=== PATIENT | male | born 1955 | race African-American/Black ===

== ENCOUNTER → 2016-08-21 | Outpatient (CLI) | payer BC ==
--- NOTE | 2016-08-21 10:09 | XR ---
Bilateral shoulders HISTORY: Pain in both shoulders, remote trauma right shoulder 3 views of both shoulders submitted on a total of 6 images Comparison to prior right shoulder dated 16 March 2010 Small calcifications are present near the insertion of the rotator cuff tendon on the right. Alignmen t, bone mineralization, joint spaces are maintained. There is calcification along the distribution of the rotator cuff tendon on the left. Acromioclavicular joint arthropathy changes present bilaterally . IMPRESSION: Findings suggest calcific tendinitis bilaterally. AC joint arthropathy.
== END | disposition home or self-care (01) ==
LOC: RADXRMAIN 09:10
PROVIDERS: ATTEND Psychiatry & Neurology Neurology
DX: M19.011 Primary osteoarthritis, right shoulder (principal); M19.012 Primary osteoarthritis, left shoulder

== ENCOUNTER → 2016-10-06 | Outpatient (CLI) | payer BC ==
[2016-10-06 12:24] LABS: Blood Urea Nitrogen 20 mg/dL (9-20); Non-African American GFR(MDRD) >60 (>60 ml/min/1.73 sqM)
--- NOTE | 2016-10-06 12:53 | XR ---
EXAMINATION TYPE: XR chest 2V DATE OF EXAM: 10/06/2016 12:07 PM COMPARISON: NONE TECHNIQUE: PA and lateral views submitted. HISTORY: Loss of appetite FINDINGS: The lungs are clear and there is no pneumothorax, pleural effusion, or focal pneumonia. Hypertrophi c and degenerative change of the spine noted. IMPRESSION: 1. No acute process.
--- NOTE | 2016-10-06 13:59 | CT ---
EXAMINATION TYPE: CT abdomen pelvis w con DATE OF EXAM: 10/06/2016 1:34 PM COMPARISON: NONE HISTORY: 61-year-old male weight loss and loss of appetite, change in bowel habits. TECHNIQUE: Contiguous axial scanning of the abdomen and pelvis following administration of 100 ml Omn ipaque 300 IV contrast. Delayed images through the kidneys and coronal/sagittal reconstructions perf ormed. CT DLP: 943.3 mGycm Automated exposure control for dose reduction was used. FINDINGS: Heart is normal size with trace anterior pericardial fluid. Small hiatal hernia. Emphysematous change s seen in the lower lungs. Mild dependent atelectasis without pleural effusion. Apparent enlargement of the liver may be due to a Julio's lobe. Correlation can be made with LFTs to exclude underlying hepatocellular disease. Portal venous system is patent. There is a 1 cm hypervasc ular focus in the right hepatic dome, axial image 7 which follows the blood pool on delayed kidney im ages suggesting a flash filling hemangioma. Gallbladder shows some layering calculi in the fundus, axial image 33. No abnormal gallbladder disten tion. No biliary ductal dilatation. A prominent peripancreatic lymph node near the ashwini hepatis measures 9 mm. 1 cm portacaval lymph nod e is not enlarged. Otherwise, no mesenteric or retroperitoneal lymphadenopathy. Right adrenal gland, spleen, and pancreas appear within normal limits. There is a complex cystic lesion measuring 2.2 cm in the upper pole right kidney that shows periphera l calcifications and some apparent nodular enhancement, refer to axial image 16 and coronal images 60 and 62. Subcentimeter hypodensities left kidney are too small for accurate CT characterization but probably r epresent cysts. There is a lobulated 3.3 cm cyst within the anterior mid to lower pole left kidney. 4 mm nonobstructive calculus and a minor calyceal system mid pole left kidney. No dilated small bowel, free fluid, or free air. There is an indeterminate left adrenal gland nodule measuring 1.8 cm and an additional 1.3 cm nodule just superiorly. Moderate overall stone burden with mild descending colonic diverticulosis. Bladder is partially urine distended. Prostate gland enlarged at 5.0 cm wide. Rectum appears normal. No abnormal fluid collection in the pelvis or pelvic lymphadenopathy seen. Bones: Mild degenerative changes at the hips no osseous destructive process. IMPRESSION: 1. Suspicious 2.2 cm complex cystic mass upper pole right kidney. Cystic RCC is not excluded. 2. Indeterminate nodularity measuring up to 1.8 cm in the left adrenal gland. Consider adrenal protoc ol CT to assess for potential adrenal adenomas versus more suspicious lesions. 3. A mildly enlarged peripancreatic lymph node near the ashwini hepatis measures 9 mm and may be reacti ve/post inflammatory but should be followed. 4. Cholelithiasis, nonobstructive 4 mm left renal calculus, prostatomegaly (5 cm wide), and moderate stool burden. 5. Small hiatal hernia and emphysema.
== END ==
LOC: RADCTMAIN 11:33
PROVIDERS: ATTEND Family Medicine
DX: K80.20 Calculus of gallbladder without cholecystitis without obstruction (principal); E27.8 Other specified disorders of adrenal gland; N20.0 Calculus of kidney; E29.1 Testicular hypofunction; K59.00 Constipation, unspecified; K44.9 Diaphragmatic hernia without obstruction or gangrene; F17.210 Nicotine dependence, cigarettes, uncomplicated
CPT/HCPCS: 82565; 84520; 71020; 74177; 36415; Q9967

== ENCOUNTER 2016-11-03 11:25 | Day surgery (SDC) | payer BC ==
[2016-10-29 12:01] VITALS: BMI 27.8
[~2016-11-03 11:25] MED LIST: LACTATED RINGERS 1,000 ML IV SCH
[2016-11-03 12:17] VITALS: RESP 16; TEMP 97.6
[2016-11-03] MEDS ORDERED: LIDOCAINE 1% 20 ML VIAL (10MG/ML) FOR IV START INTRADERMA ONE (12:39)
[2016-11-03 12:47] LABS: Glucose,Whole Blood 156 mg/dL (75-99)
[2016-11-03] MEDS ORDERED: LIDOCAINE 1% INJ 10MG/ML (20 ML MDV) ONE (12:48)
[2016-11-03] MEDS ORDERED: PROPOFOL 10 MG/ML 20 ML VIAL IV ONE (12:48)
[2016-11-03 14:01] LABS: Glucose,Whole Blood 128 mg/dL (75-99)
[2016-11-03 14:29] VITALS: BP 101/78; PULSE 88
--- NOTE | 2016-12-01 13:35 | P.OP ---
Date of Procedure: 11/03/16 Preoperative Diagnosis: Abdominal pain and weight loss Screening for colon cancer GERD Postoperative Diagnosis: GERD with esophagitis , severe gastritis, duodenitis and hiatal hernia Diverticulosis Procedure(s) Performed: EGD with biopsy COlonoscopy Anesthesia: YOHANA Surgeon: William Waite Pathology: other Condition: stable Disposition: PACU Description of Procedure: A timeout was performed to verify the correct patient and correct procedure. Patient was on continuous vitals and pulse ox monitoring throughout the procedure. He was placed in lateral decubitus position and a bite block was inserted. A well-lubricated endoscope was passed orally. The esophagus was intubated without difficulty. The EGD was passed beyond the pylorus into the first and second portion of the duodenum. Biopsies were taken using cold biopsy forceps. The scope was retroflexed. Small hiatal was noted which is Hill Maxwell II. The GE junction is measured at [38] cm from the incisors . No evidence of reflux esophagitis. The endoscope was gradually withdrawn. Swever gastirits and duodenitis with hiatal hernia and reflux was noted. Patients position was changed for a colonoscopy Perianal examination did not reveal any external hemorrhoids. Digital rectal examination was performed. A well-lubricated endoscope was passed per rectally and was gradually advanced beyond the sigmoid colon, splenic flexure, transverse colon, hepatic flexure and cecum. The ileocecal valve was visualized. Then diverticulosis noted without any evidence of diverticulitis. Scope was gradually withdrawn inspecting all the mucosal surfaces. Bowel prep was good. No other polyps or masses noted. Retroflexed in the rectum and large internal hemorrhoid was noted which was not bleeding at this time. The scope was gradually withdrawn. Patient tolerated the procedure well and was taken to post anesthesia care unit in stable condition.f/u in 10 years for colonoscopy.
== END 2016-11-03 14:45 | disposition home or self-care (01) ==
LOC: ORWHC2ENDO 11:25
PROVIDERS: ATTEND Surgery
DX: Z12.11 Encounter for screening for malignant neoplasm of colon (principal); K29.80 Duodenitis without bleeding; K29.50 Unspecified chronic gastritis without bleeding; K21.0 Gastro-esophageal reflux disease with esophagitis; K20.0 Eosinophilic esophagitis; K44.9 Diaphragmatic hernia without obstruction or gangrene; K57.30 Diverticulosis of large intestine without perforation or abscess without bleeding; K64.8 Other hemorrhoids; I10 Essential (primary) hypertension; E78.5 Hyperlipidemia, unspecified; E11.9 Type 2 diabetes mellitus without complications; Z79.84 Long term (current) use of oral hypoglycemic drugs; Z79.1 Long term (current) use of non-steroidal anti-inflammatories (NSAID); Z79.899 Other long term (current) drug therapy
CPT/HCPCS: 88305; 88342; 88341; 43239; J2001; J2704; G0121

== ENCOUNTER → 2016-11-18 | Outpatient (CLI) | payer BC ==
[2016-11-18 08:42] LABS: EKG EKG PERFORMED
--- NOTE | 2016-11-18 09:21 | XR ---
EXAMINATION TYPE: XR chest 2V DATE OF EXAM: 11/18/2016 9:17 AM COMPARISON: 10/06/2016 TECHNIQUE: PA and lateral views submitted. HISTORY: Presurgical FINDINGS: The lungs are clear and there is no pneumothorax, pleural effusion, or focal pneumonia. Hypertrophi c change of the spine. No overt failure. IMPRESSION: 1. No acute process.
[2016-11-18 09:23] LABS: Basophils # (A) 0.1 k/uL (0-0.2); Basophils % (A) 1 %; CH 31.7; CHCM 33.9; Eosinophils # (A) 0.3 k/uL (0-0.7); Eosinophils % (A) 4 %; HCT 40.4 % (39.0-53.0); HDW 2.63; HGB 13.4 gm/dL (13.0-17.5); Luc # (Auto) 0.24; Luc % (Auto) 3; Lymphocytes % (A) 39 %; MCV 93.7 fL (80.0-100.0); Mean Platelet Volume 7.6; Monocytes # (A) 0.4 k/uL (0-1.0); Monocytes % (A) 5 %; Neutrophils # (A) 3.8 k/uL (1.3-7.7); Neutrophils % (A) 49 %; RBC 4.31 m/uL (4.30-5.90); RDW 13.7 % (11.5-15.5); WBC 7.8 k/uL (3.8-10.6); WBC (Perox) 8.31
[2016-11-18 09:25] LABS: Appearance,Urine Clear (Clear); Bilirubin,Urine Negative (Negative); Glucose,Urine (UA) Negative (Negative); Ketones,Urine Negative (Negative); Leukocyte Esterase,Urine Negative (Negative); Nitrite,Urine Negative (Negative); Protein,Urine Trace (Negative); Specific Gravity,Urine 1.017 (1.001-1.035); UA Billing (MACRO vs. MICRO) CHEM
[2016-11-18 09:47] LABS: Anion Gap 11 mmol/L; Blood Urea Nitrogen 15 mg/dL (9-20); Calcium 10.1 mg/dL (8.4-10.2); Carbon Dioxide 27 mmol/L (22-30); Chloride 104 mmol/L (98-107); Glucose 113 mg/dL (74-99); Non-African American GFR(MDRD) >60 (>60 ml/min/1.73 sqM); Potassium 4.6 mmol/L (3.5-5.1); Sodium 142 mmol/L (137-145)
== END ==
LOC: LABPAT 08:29
PROVIDERS: ATTEND Urology
DX: Z01.818 Encounter for other preprocedural examination (principal); Z01.810 Encounter for preprocedural cardiovascular examination; Z01.812 Encounter for preprocedural laboratory examination; D41.01 Neoplasm of uncertain behavior of right kidney; R06.02 Shortness of breath; I10 Essential (primary) hypertension; E11.9 Type 2 diabetes mellitus without complications; R35.0 Frequency of micturition; N28.89 Other specified disorders of kidney and ureter
CPT/HCPCS: 36415; 71020; 80048; 81003; 85025; 93005

== ENCOUNTER 2016-11-25 08:21 | Inpatient (IN) | payer BC ==
[~2016-11-25 08:21] MED LIST changes: +DEXAMETHASONE SOD PHOSPHATE 10 MG/ML 1 ML VIAL IV ONE; +HYDROmorphone 1 MG/ML 1 ML SYRINGE IVP PRN; +LIDOCAINE 1% 20 ML VIAL (10MG/ML) FOR IV START INTRADERMA ONE; +LIDOCAINE 1% 20 ML VIAL (10MG/ML) FOR IV START INTRADERMA PRN; +MIDAZOLAM 2 MG/2 ML VIAL IV PRN; +ONDANSETRON 4 MG/2 ML VIAL IVP ONE; +Pre Op ABX Message 1 EACH MISC MISCELLANE ONE; +SCOPOLAMINE 1.5MG/72HR PATCH TRANSDERM ONE
[2016-11-25] MEDS ORDERED: MIDAZOLAM 2 MG/2 ML VIAL IVP ONE (08:36)
[2016-11-25] MEDS ORDERED: fentaNYL (PF) 50 MCG/ML 2 ML AMP IV ONE (08:36)
[2016-11-25 09:23] LABS: Glucose,Whole Blood 107 mg/dL (75-99)
[2016-11-25] MEDS ORDERED: LIDOCAINE 1% INJ 10MG/ML (20 ML MDV) ONE (10:32)
[2016-11-25] MEDS ORDERED: NEOSTIGMINE 1 MG/ML 10 ML VIAL ONE (10:32)
[2016-11-25] MEDS ORDERED: PHENYLEPHRINE-0.9% NACL SYG 1 MG/10 ML SYRINGE ONE (10:32)
[2016-11-25] MEDS ORDERED: GLYCOPYRROLATE 0.2 MG/ML 2 ML VIAL ONE (10:32)
[2016-11-25] MEDS ORDERED: fentaNYL (PF) 50 MCG/ML 2 ML AMP ONE (10:32)
[2016-11-25] MEDS ORDERED: PROPOFOL 10 MG/ML 20 ML VIAL IV ONE (10:32)
[2016-11-25] MEDS ORDERED: MIDAZOLAM 2 MG/2 ML VIAL ONE (10:32)
[2016-11-25] MEDS ORDERED: SUCCINYLCHOLINE CHLORIDE 100 MG/5 ML SYR IV ONE (10:32)
[2016-11-25] MEDS ORDERED: ROCURONIUM BROMIDE 10 MG/ML 10 ML VIAL IV ONE (10:32)
[2016-11-25] MEDS ORDERED: NALOXONE 0.4 MG/ML 1 ML VIAL IV PRN ×2 (10:33→12:02)
[2016-11-25] MEDS ORDERED: LACTATED RINGERS 1,000 ML IV ONE (10:59)
--- NOTE | 2016-11-25 12:09 | P.OP ---
Date of Procedure: 11/25/16 Postoperative Diagnosis: Right renal mass Procedure(s) Performed: Same Anesthesia: GETA, epidural Surgeon: Reji Stanton Bufferer #1: Logan Isaac Estimated Blood Loss (ml): 50 Pathology: other (Renal mass) Condition: stable Disposition: PACU Indications for Procedure: The patient is a pleasant 61-year-old gentleman who had a coincidental computed tomography scan identifying a 2-1/2-3 cm cortical upper pole right renal mass that was atypical and a Bosniak class III on ultrasound. We discussed treatment options is chosen for an open partial nephrectomy Description of Procedure: The patient is brought to the operating suite and given a successful general endotracheal anesthesia. A sterile prep and drape was administered. A Jensen catheters placed sterilely. Prior to this an epidural anesthetic is been placed for intraoperative and postoperative pain management. A right subcostal incision is made. The rectus and oblique fascias are opened. The peritoneum was opened. There is a small amount of adhesion that is taken down primarily omentum to the anterior abdominal wall as well as a piece of bowel. Rather than do a full [place] and bowel mobilization the fact that the patient is quite thin and the kidney is easily palpated make an incision into Hemant is to the upper pole of the kidney. We then dissect down onto renal capsule and slowly and tediously dissect renal fat off the kidney from the lateral aspect of the kidney the anterior aspect of the kidney and the upper pole. We identified the renal vein as well as the duodenum. These structures are freed. The duodenum was retracted medially. Identify the adrenal gland and dissected off the top of the kidney. We are then able to place adequate retraction such that what we are now seeing is the kidney down to renal capsule. We tediously dissected 360 around the upper pole the kidney and identify the upper pole right renal mass which is about 3 cm and somewhat exophytic. With electrocautery were able to dissect this out of the renal parenchyma. It is not deep. It is solid appearing visually. We remove this structure intact. We then cauterized thoroughly the renal bed. We placed Surgicel in the renal bed. Watch this for about 10 minutes and there is no bleeding. A Trent-Fry drain is brought through the separate stab incision and placed up into the kidney. I'll is allowed to fall back in the right upper quadrant. The wound is closed with 3 layers of #1 Vicryl. The skin is stapled. Blood loss was approximately 50 mL. The patient tolerated procedure well awake and returned recovery room good condition. The specimen has been sent to pathology.
[2016-11-25] MEDS: SODIUM CHLORIDE 0.9% EPIDURAL PRN ×3 (12:13→13:13)
[2016-11-25] MEDS: HYDROMORPHONE EPIDURAL PRN ×3 (12:13→13:13)
[2016-11-25] MEDS: BUPIVACAINE 0.5% EPIDURAL PRN ×3 (12:13→13:13)
[2016-11-25 12:18] LABS: Glucose,Whole Blood 132 mg/dL (75-99)
[2016-11-25] MEDS: SODIUM CHLORIDE 0.45% 1,000 ML IV SCH ×2 (14:06→21:29)
[2016-11-25 14:42] VITALS: BMI 26.4
[2016-11-25] MEDS: glipiZIDE 5 MG TAB PO SCH (16:47)
[2016-11-25] MEDS: GABAPENTIN 300 MG CAP PO SCH ×2 (16:47→21:29)
[2016-11-25 17:14] LABS: Glucose,Whole Blood 176 mg/dL (75-99)
[2016-11-25 20:29] LABS: Glucose,Whole Blood 189 mg/dL (75-99)
[2016-11-25] MEDS: ATORVASTATIN 20 MG TAB PO SCH (21:29)
[2016-11-26 07:24] LABS: Glucose,Whole Blood 121 mg/dL (75-99)
--- NOTE | 2016-11-26 08:00 | P.PN ---
Progress Note - Text Date: 11/26/2016 Time: 723 The patient is status post, right partial nephrectomy, postoperative day number 1 The patient has no complaints of nausea vomiting or headache. The patient does not complain of any lower extremity weakness. The patient does exhibit some slight left thigh numbness. The epidural rate will be adjusted accordingly if this persists. At present the epidural is running at 8 mL per hour. The epidural will be maintained and adjusted as needed.
[2016-11-26] MEDS: NICOTINE 7MG/24HR PATCH TRANSDERM SCH (08:26)
[2016-11-26] MEDS: amLODIPine 10 MG TAB PO SCH (08:26)
[2016-11-26] MEDS: PANTOPRAZOLE 40 MG TABLET PO SCH (08:26)
[2016-11-26] MEDS: GABAPENTIN 300 MG CAP PO SCH ×3 (08:26→21:03)
[2016-11-26] MEDS: glipiZIDE 5 MG TAB PO SCH ×2 (08:26→17:22)
[2016-11-26] MEDS: SODIUM CHLORIDE 0.45% 1,000 ML IV SCH ×2 (08:29→19:53)
--- NOTE | 2016-11-26 11:10 | P.PN ---
Subjective Patient is in his first day postop right partial nephrectomy. He is doing well. His abdomen is soft. The drainage is minimal. His vital signs are stable. He has an epidural for his pain and he has some left leg numbness. I will decrease epidural. I will emulate the patient in advance his diet. Objective - Vital Signs Vital signs: Vital Signs Temp 98.3 F 11/26/16 07:00 Pulse 85 11/26/16 08:00 Resp 16 11/26/16 08:00 BP 92/55 11/26/16 07:00 Pulse Ox 93 L 11/26/16 07:00 Intake & Output 11/25/16 11/26/16 11/26/16 18:59 06:59 18:59 Intake Total 3143 2064 450 Output Total 660 1895 850 Balance 2483 169 -400 Weight 90.718 kg 90.718 kg Intake: IV 2663 Intake, IV Titration 864 Amount Bupivacaine (Pf) 0.5% 37. 64 5 ml HYDROmorphone 5 mg In Sodium Chloride 0.9% 210 ml @ Per Protocol EPIDURAL .Q0M PRN Rx#: [id number] Sodium Chloride 0.45% 1, 800 000 ml @ 100 mls/hr IV . Q10H DARÍO Rx#:[id number] Oral 480 1200 450 Output: Drainage 60 95 30 Right Abdomen 60 95 30 Urine 550 1800 820 Uretheral (Jensen) 1100 820 Estimated Blood Loss 50 Other: Voiding Method Indwelling Catheter Indwelling Catheter Indwelling Catheter - Labs Labs: Abnormal Lab Results - Last 24 Hours (Table) 11/25/16 11/25/16 11/25/16 Range/Units 12:08 17:11 20:18 POC Glucose (mg/dL) 132 H 176 H 189 H (75-99) mg/dL 11/26/16 Range/Units 07:22 POC Glucose (mg/dL) 121 H (75-99) mg/dL
[2016-11-26 11:30] LABS: Glucose,Whole Blood 102 mg/dL (75-99)
[2016-11-26] MEDS ORDERED: BUPIVACAINE (PF) 0.5% 30 ML VIAL EPIDURAL SCH (13:15)
[2016-11-26] MEDS: SODIUM CHLORIDE 0.9% EPIDURAL PRN (14:04)
[2016-11-26] MEDS: HYDROMORPHONE EPIDURAL PRN (14:04)
[2016-11-26] MEDS: BUPIVACAINE 0.5% EPIDURAL PRN (14:04)
[2016-11-26 17:43] LABS: Glucose,Whole Blood 137 mg/dL (75-99)
[2016-11-26 20:33] LABS: Glucose,Whole Blood 167 mg/dL (75-99)
[2016-11-26] MEDS: diphenhydrAMINE 50 MG/ML 1 ML VIAL IVP PRN (20:58)
[2016-11-26] MEDS: ATORVASTATIN 20 MG TAB PO SCH (21:03)
[2016-11-27] MEDS: diphenhydrAMINE 50 MG/ML 1 ML VIAL IVP PRN ×3 (02:50→21:14)
[2016-11-27] MEDS: SODIUM CHLORIDE 0.45% 1,000 ML IV SCH ×2 (06:05→15:56)
[2016-11-27 07:15] LABS: Glucose,Whole Blood 86 mg/dL (75-99)
[2016-11-27] MEDS: NICOTINE 7MG/24HR PATCH TRANSDERM SCH (07:45)
[2016-11-27] MEDS: amLODIPine 10 MG TAB PO SCH (07:46)
[2016-11-27] MEDS: GABAPENTIN 300 MG CAP PO SCH ×3 (07:46→21:15)
[2016-11-27] MEDS: PANTOPRAZOLE 40 MG TABLET PO SCH (07:46)
[2016-11-27] MEDS: glipiZIDE 5 MG TAB PO SCH ×2 (07:46→17:13)
[2016-11-27 11:45] LABS: Glucose,Whole Blood 181 mg/dL (75-99)
--- NOTE | 2016-11-27 12:17 | P.PN ---
Subjective The patient is in his second postoperative day from a right partial nephrectomy. His pain is controlled by the epidural. His vital signs are stable. He is eating a regular diet. He has not ambulated yet. He will ambulate. I removed his drain. Pathology is pending. I will keep the epidural until tomorrow. Anticipate discharge Wednesday morning. Objective - Vital Signs Vital signs: Vital Signs Temp 97.9 F 11/27/16 07:00 Pulse 92 11/27/16 07:00 Resp 16 11/27/16 08:00 BP 122/80 11/27/16 07:00 Pulse Ox 93 L 11/27/16 07:00 Intake & Output 11/26/16 11/27/16 11/27/16 18:59 06:59 18:59 Intake Total 1827 1900 360 Output Total 4245 1655 2200 Balance -2418 245 -1840 Weight 90.718 kg Intake: Intake, IV Titration 877 1400 Amount Bupivacaine (Pf) 0.5% 37. 25 5 ml HYDROmorphone 5 mg In Sodium Chloride 0.9% 210 ml @ Per Protocol EPIDURAL .Q0M PRN Rx#: [id number] Sodium Chloride 0.45% 1, 852 1400 000 ml @ 100 mls/hr IV . Q10H DARÍO Rx#:[id number] Oral 950 500 360 Output: Drainage 30 30 Right Abdomen 30 30 Urine 4215 1625 2200 Uretheral (Jensen) 2215 575 2200 Other: Voiding Method Indwelling Catheter Indwelling Catheter Indwelling Catheter - Labs Labs: Abnormal Lab Results - Last 24 Hours (Table) 11/26/16 11/26/16 11/27/16 Range/Units 17:39 20:13 11:42 POC Glucose (mg/dL) 137 H 167 H 181 H (75-99) mg/dL
--- NOTE | 2016-11-27 12:52 | P.PN ---
Progress Note - Text 11/27 722 61-year-old male partial nephrectomy by Dr. Stanton. Patient has an epidural for postop pain control running at 5 mL an hour, VAS of 3, no motor or sensory deficits patient ambulating. Plan to continue epidural infusion
[2016-11-27 17:23] LABS: Glucose,Whole Blood 172 mg/dL (75-99)
[2016-11-27 20:55] LABS: Glucose,Whole Blood 196 mg/dL (75-99)
[2016-11-27] MEDS: ATORVASTATIN 20 MG TAB PO SCH (21:15)
[2016-11-28] MEDS: SODIUM CHLORIDE 0.45% 1,000 ML IV SCH ×3 (01:23→23:15)
[2016-11-28] MEDS: diphenhydrAMINE 50 MG/ML 1 ML VIAL IVP PRN ×2 (04:31→12:03)
[2016-11-28 07:40] LABS: Glucose,Whole Blood 106 mg/dL (75-99)
[2016-11-28] MEDS: PANTOPRAZOLE 40 MG TABLET PO SCH (07:53)
[2016-11-28] MEDS: glipiZIDE 5 MG TAB PO SCH ×2 (07:53→17:10)
[2016-11-28] MEDS: GABAPENTIN 300 MG CAP PO SCH ×3 (07:54→21:21)
[2016-11-28] MEDS: amLODIPine 10 MG TAB PO SCH (07:54)
[2016-11-28] MEDS: NICOTINE 7MG/24HR PATCH TRANSDERM SCH (07:54)
--- NOTE | 2016-11-28 08:30 | P.PN ---
Progress Note - Text The patient is afebrile. Blood pressure is 120/70. He remains very comfortable with his epidural anesthetic. He is tolerating a diet and ambulating well. Denies any shortness of breath. Glucose this morning is 83. Physical exam: Abdomen-incision is uninflamed. No drainage from Trent-Fry site. Impression: Good recovery following a partial nephrectomy. Plan: The patient's epidural will be discontinued and he will be switched to oral analgesics. If he continues to do well he will be discharged tomorrow.
--- NOTE | 2016-11-28 08:34 | P.PN ---
Progress Note - Text Date: 11/28/2016 Time: 716 The patient is status post, right partial nephrectomy, postoperative day number 3 The patient has no complaints of nausea vomiting or headache. The patient does not complain of any lower extremity numbness or weakness. The epidural will be discontinued this morning. Pain medicines will be provided to the patient by the service.
[2016-11-28 11:40] LABS: Glucose,Whole Blood 141 mg/dL (75-99)
[2016-11-28] MEDS: Acetaminophen-Codeine 300-30mg TAB PO PRN ×2 (12:04→17:56)
[2016-11-28 17:04] LABS: Glucose,Whole Blood 194 mg/dL (75-99)
[2016-11-28 20:55] LABS: Glucose,Whole Blood 186 mg/dL (75-99)
[2016-11-28] MEDS: ATORVASTATIN 20 MG TAB PO SCH (21:20)
[2016-11-28] MEDS ORDERED: DOCUSATE 100 MG CAP PO PRN (21:35)
[2016-11-28] MEDS ORDERED: MAGNESIUM HYDROXIDE 2,400 MG/10 ML CUP PO PRN (21:36)
[2016-11-28 22:00] VITALS: TEMP 98
[2016-11-28] MEDS ORDERED: KETOROLAC 30 MG/ML 1 ML VIAL IVP PRN (22:07)
[2016-11-29] MEDS ORDERED: KETOROLAC 30 MG/ML 1 ML VIAL IVP SCH
[2016-11-29 07:24] LABS: Glucose,Whole Blood 154 mg/dL (75-99)
[2016-11-29] MEDS: glipiZIDE 5 MG TAB PO SCH (07:25)
[2016-11-29] MEDS: NICOTINE 7MG/24HR PATCH TRANSDERM SCH (07:25)
[2016-11-29] MEDS: GABAPENTIN 300 MG CAP PO SCH (07:25)
[2016-11-29] MEDS: amLODIPine 10 MG TAB PO SCH (07:25)
[2016-11-29] MEDS: PANTOPRAZOLE 40 MG TABLET PO SCH (07:25)
[2016-11-29] MEDS: SODIUM CHLORIDE 0.45% 1,000 ML IV SCH (07:26)
[2016-11-29] MEDS: Acetaminophen-Codeine 300-30mg TAB PO PRN (07:33)
[2016-11-29 07:53] VITALS: BP 128/71; PULSE 89; RESP 16
--- NOTE | 2016-11-29 10:08 | P.PN ---
Progress Note - Text The patient is afebrile and tolerating a diet. He is ambulatory. His epidural catheter was removed yesterday and his pain is controlled with oral analgesics. He has had no problems voiding since his catheter was removed. His incision is uninflamed. Pathology report is pending. Impression: Good recovery following partial right nephrectomy. The patient will be discharged today and will be seen back by Dr. Stanton on 12/05. He will resume his home medications and a regular diet. He has been given a prescription for Ruby 7.5/325 when necessary fo pain.
--- NOTE | 2016-12-23 22:05 | P.DS ---
Providers Date of admission: 11/25/16 08:21 Attending physician: Reji Stanton Consults: 11/26/16 12:22 Consult Anesthesia Stat Consulting Provider: Anesthesia,Services Consult Reason/Comments: decrease epidural due to right numb leg [facility] Course: This gentleman was identified to have a to have a 3 cm atypical right renal mass. He was admitted and underwent a partial nephrectomy. His post op course was uneventful He had an epidural cath for pain control He had a lang til the cath was removed. His wound looked good His diet was advanced. He ambulated He was discharged homeon 11/29/2016 on a regular diet. His activity was linmited. He will resume his home meds. His final pathology report identifed a t1a n0m0 renal harshal ca . He will be seen in the office in 1 week Patient Condition at Discharge: Stable Plan - Discharge Summary New Discharge Prescriptions: HYDROcodone/APAP 7.5-325MG [[place] 7.5-325] 1 tab PO Q6HR PRN #15 tab PRN Reason: Pain Discharge Medication List Atorvastatin [Lipitor] 20 mg PO HS 10/29/16 [History] Gabapentin [Neurontin] 300 mg PO TID 10/29/16 [History] amLODIPine [Norvasc] 10 mg PO DAILY 10/29/16 [History] glyBURIDE [Diabeta] 2.5 mg PO AC-BID 10/29/16 [History] Insulin Glargine [Lantus] 10 unit SQ QAM 11/23/16 [History] Omeprazole 40 mg PO DAILY 11/23/16 [History] HYDROcodone/APAP 7.5-325MG [[place] 7.5-325] 1 tab PO Q6HR PRN #15 tab 11/29/16 [ Rx] Follow up Appointment(s)/Referral(s): Benjamin Armijo MD [Primary Care Provider] - 1 Week (patient to follow up primary care 1 week. call for appt ( office is closed at time of discharge)) Reji Stanton MD [STAFF PHYSICIAN] - 12/02/16 (PATIENT to call office tomorrow to schedule appt on Wednesday.) Patient Instructions/Handouts: Hydrocodone/Acetaminophen (By mouth), Open Nephrolithotomy (DC), Type 2 Diabetes in Adults (GEN), Diabetic Peripheral Neuropathy (DC) Activity/Diet/Wound Care/Special Instructions: NO DRIVING, NO LIFTING OVER 10 POUNDS UNTIL CLEARED BY SURGERY DR. STANTON Discharge Disposition: HOME SELF-CARE
== END 2016-11-29 11:11 | disposition home or self-care (01) | DRG 658 ==
LOC: 2ORMAIN 08:21 → 5MS5E 11:56
PROVIDERS: ADMIT Urology; ATTEND Urology
PROC: 0TB00ZZ Excision of Right Kidney, Open Approach (ICD-10-PCS; principal; 2016-11-25 10:15)
DX: C64.1 Malignant neoplasm of right kidney, except renal pelvis (principal); E11.40 Type 2 diabetes mellitus with diabetic neuropathy, unspecified; E78.5 Hyperlipidemia, unspecified; I10 Essential (primary) hypertension; K44.9 Diaphragmatic hernia without obstruction or gangrene; N52.9 Male erectile dysfunction, unspecified; K80.20 Calculus of gallbladder without cholecystitis without obstruction; K64.9 Unspecified hemorrhoids; Z79.4 Long term (current) use of insulin; Z79.899 Other long term (current) drug therapy; Z91.19 Patient's noncompliance with other medical treatment and regimen; Z82.49 Family history of ischemic heart disease and other diseases of the circulatory system
CPT/HCPCS: 36415; 71020; 80048; 81003; 85025; 86850; 86900; 86901; 88307; 88341; 88342; 93005

== ENCOUNTER → 2017-11-20 | Outpatient (CLI) | payer BC ==
--- NOTE | 2017-11-20 08:53 | XR ---
EXAMINATION TYPE: XR knee complete bilateral , 6 VIEWS DATE OF EXAM ORDERED: 11/20/2017 HISTORY: M25.561; M25.562. COMPARISON: None. FINDINGS: There is mild medial joint space loss present bilaterally. No fractures or dislocations ar e seen. There is no joint effusion. There is some vascular calcification present. IMPRESSION: 1. NO ACUTE OSSEOUS LESION. 2. MINIMAL CHANGES OF OSTEOARTHRITIS.
== END | disposition home or self-care (01) ==
LOC: RADXRMAIN 07:42
PROVIDERS: ATTEND Family Medicine
DX: M17.11 Unilateral primary osteoarthritis, right knee (principal); M17.12 Unilateral primary osteoarthritis, left knee

== ENCOUNTER → 2018-12-02 | Outpatient (CLI) | payer BC ==
--- NOTE | 2018-12-03 12:59 | XR ---
EXAMINATION TYPE: XR chest 2V DATE OF EXAM: 12/02/2018 COMPARISON: Prior chest x-ray 11/18/2016 HISTORY: Renal cancer right kidney TECHNIQUE: Frontal and lateral views of the chest are obtained. FINDINGS: There is no focal air space opacity, pleural effusion, or pneumothorax seen. The cardiac silhouette size is within normal limits. The osseous structures are intact. IMPRESSION: No acute cardiopulmonary process.
--- NOTE | 2018-12-03 13:17 | US ---
EXAMINATION TYPE: US renals and bladder DATE OF EXAM: 12/02/2018 COMPARISON: CT CLINICAL HISTORY: C64.1 Rt Renal Cancer. H/O right renal CA, pt states having lesion removed 2 years ago EXAM MEASUREMENTS: Right Kidney: 11.9 x 5.6 x 5.8 cm Left Kidney: 12.9 x 6.5 x 5.0 cm Right Kidney: No evidence of hydro, vague isoechoic area upper pole= 2.6 x 2.0 x 1.9 cm Left Kidney: No evidence of hydro, lobulated contour, cyst with septations mid/medial= 3.3 x 2.6 x 2. 7 cm Bladder: wnl Bilateral Jets seen: Only left jet visualized Incidental finding enlarged liver There is no evidence for hydronephrosis at this point in time. No nephrolithiasis is seen. The isoec hoic focus at the upper pole the right kidney shows a similar size to previous exam. Cortical medulla ry differentiation is maintained. Cystic focus within the left kidney is not simple cystic but does s how a similar size to prior exam. The urinary bladder is anechoic. Bilateral ureteral jets are seen. IMPRESSION: Findings similar to prior CT exam as described, lesions are not simple cystic.
== END | disposition home or self-care (01) ==
LOC: RADUSMAIN 16:59
PROVIDERS: ATTEND Urology
DX: C64.1 Malignant neoplasm of right kidney, except renal pelvis (principal)
CPT/HCPCS: 71046; 76770

== ENCOUNTER → 2018-12-05 | Outpatient (CLI) | payer BC ==
[2018-12-06 00:32] LABS: Albumin 4.6 g/dL (3.80-4.90); Albumin/Globulin Ratio 1.77 (1.60-3.17); Anion Gap 8.8 mmol/L (4.00-12.00); Carbon Dioxide 23.2 mmol/L (21.6-31.8); Globulin 2.6 g/dL (1.6-3.3); Potassium 4.5 mmol/L (3.5-5.5); Total Bilirubin 0.3 mg/dL (0.3-1.2); Total Protein 7.2 g/dL (6.2-8.2)
== END ==
LOC: LABWHC1 15:19
PROVIDERS: ATTEND Urology
DX: C61 Malignant neoplasm of prostate (principal); C64.1 Malignant neoplasm of right kidney, except renal pelvis
CPT/HCPCS: 36415; 80053; 84153

== ENCOUNTER 2019-04-07 07:20 | Day surgery (SDC) | payer BC ==
[2019-04-05 11:26] VITALS: BMI 34.2
[~2019-04-07 07:20] MED LIST changes: -DEXAMETHASONE SOD PHOSPHATE 10 MG/ML 1 ML VIAL IV ONE; -HYDROmorphone 1 MG/ML 1 ML SYRINGE IVP PRN; -LACTATED RINGERS 1,000 ML IV SCH; -LIDOCAINE 1% 20 ML VIAL (10MG/ML) FOR IV START INTRADERMA ONE; -MIDAZOLAM 2 MG/2 ML VIAL IV PRN; -ONDANSETRON 4 MG/2 ML VIAL IVP ONE; -Pre Op ABX Message 1 EACH MISC MISCELLANE ONE; -SCOPOLAMINE 1.5MG/72HR PATCH TRANSDERM ONE
[2019-04-07 07:44] VITALS: TEMP 97.8
[2019-04-07] MEDS ORDERED: LIDOCAINE 1% 20 ML VIAL (10MG/ML) FOR IV START INTRADERMA ONE (07:48)
[2019-04-07] MEDS: LACTATED RINGERS 1,000 ML IV SCH ×2 (07:52→08:16)
[2019-04-07 07:56] LABS: Glucose,Whole Blood 153 mg/dL (75-99)
[2019-04-07] MEDS ORDERED: PROPOFOL 10 MG/ML 20 ML VIAL IV ONE (08:16)
[2019-04-07] MEDS ORDERED: fentaNYL (PF) 50 MCG/ML 2 ML AMP ONE (08:16)
[2019-04-07] MEDS ORDERED: LIDOCAINE 1% INJ 10MG/ML (20 ML MDV) ONE (08:16)
[2019-04-07] MEDS ORDERED: MIDAZOLAM 2 MG/2 ML VIAL ONE (08:16)
--- NOTE | 2019-04-07 08:25 | P.PCN ---
Date of Procedure: 04/07/19 Procedure(s) Performed: BRIEF HISTORY: Patient is a 63-year-old, pleasant, male, scheduled for an upper endoscopy as a part of evaluation of long-standing history of GERD. Lately has been having upper abdominal pain and worsening heartburn. Has been on Prilosec as well as Zantac with some improvement in his symptoms.. PROCEDURE PERFORMED: Esophagogastroduodenoscopy with biopsy. PREOPERATIVE DIAGNOSIS: Long-standing history of GERD/upper abdominal pain. IV sedation per anesthesia. PROCEDURE: After informed consent was obtained, the patient was brought into the endoscopy unit. IV sedation was administered by Anesthesia under continuous monitoring. Initially the Olympus GIF-140 video endoscope was inserted into the mouth. Esophagus intubated without any difficulty. It was gradually advanced into the stomach and duodenum and carefully examined. The bulb and the second part of the duodenum appeared normal. The scope at this time was withdrawn to the stomach, adequately insufflated with air, and upon careful examination, mucosa of the antrum had scattered erosions and biopsies for H. pylori were done. The, body, cardia and the fundus appeared normal. The scope was then withdrawn into the esophagus. Moderate size hiatal hernia noted. The GE junction was located at 37 cm from the incisors. The esophagus appeared normal. There were no erosions or ulcerations seen and the patient tolerated the procedure well. IMPRESSION: 1. Moderate size hiatal hernia. 2. Mild antral gastritis. RECOMMENDATIONS: The findings of this examination were discussed with the patient as well as his family. He will follow with the biopsy results. He was advised to continue with Prilosec 20 mg twice daily and as well as Zantac at bedtime and follow antireflux measures..
[2019-04-07 08:55] VITALS: BP 132/81; PULSE 74; RESP 20
== END 2019-04-07 08:56 | disposition home or self-care (01) ==
LOC: ORWHC2ENDO 07:20
PROVIDERS: ATTEND Internal Medicine Gastroenterology
DX: K29.50 Unspecified chronic gastritis without bleeding (principal); K21.9 Gastro-esophageal reflux disease without esophagitis; K44.9 Diaphragmatic hernia without obstruction or gangrene; I10 Essential (primary) hypertension; E78.5 Hyperlipidemia, unspecified; E11.40 Type 2 diabetes mellitus with diabetic neuropathy, unspecified; Z85.528 Personal history of other malignant neoplasm of kidney; E66.01 Morbid (severe) obesity due to excess calories; Z68.33 Body mass index [BMI] 33.0-33.9, adult; Z87.19 Personal history of other diseases of the digestive system; Z97.2 Presence of dental prosthetic device (complete) (partial); Z79.4 Long term (current) use of insulin; Z79.899 Other long term (current) drug therapy
CPT/HCPCS: 88305; 43239; J2250; J2001; J3010; J2704

== ENCOUNTER → 2019-10-10 | Outpatient (CLI) | payer BC ==
--- NOTE | 2019-10-10 16:06 | NM ---
EXAMINATION TYPE: NM pul vent and perfuse DATE OF EXAM: 10/10/2019 COMPARISON: Chest x-ray 10/10/2019 HISTORY: Shortness of breath TECHNIQUE: Utilizing inhalation of 37.7 mCi Tc 99m DTPA aerosol and intravenous injection of 5.1 mCi of Tc 99m MAA, ventilation and perfusion images are acquired post injection in multiple projections. FINDINGS: Exam is limited by reduced uptake and ventilation images with clumping of radiotracer within the resp iratory tract. Can't exclude a matched defect in the left upper lobe. IMPRESSION: Markedly limited exam due to the radiotracer within the respiratory tract on ventilation images. Exam is felt to be compatible with intermediate probability for pulmonary embolus. Given the limitation o f this exam consider pulmonary CTA if the patient is clinically compatible with IV contrast.
== END | disposition home or self-care (01) ==
LOC: RADNMMAIN 14:22
PROVIDERS: ATTEND Internal Medicine
DX: R06.09 Other forms of dyspnea (principal)
CPT/HCPCS: 78582; A9540; A9567

== ENCOUNTER → 2019-10-10 | Outpatient (CLI) | payer BC ==
--- NOTE | 2019-10-10 17:27 | CT ---
EXAMINATION TYPE: CT angio chest DATE OF EXAM: 10/10/2019 COMPARISON: None HISTORY: Dypsnea CT DLP: 544.4 mGycm Automated exposure control for dose reduction was used. CONTRAST: Performed with IV Contrast, patient injected with 80 mL of Isovue 300. There are 3-D post processed images. There is some patchy interstitial infiltrate and subsegmental atelectasis at the lung bases. Heart si ze is fairly normal. There is no pericardial effusion. There is no pleural effusion. There is subpleu ral multiple noncalcified nodules in the posterior lower lobes. These measure up to 8 mm. There is di ffuse pulmonary emphysema. There is no mediastinal adenopathy. There are no hilar masses. I see no filling defects in the pulmon nahum arteries. Thoracic aorta shows no aneurysm or dissection. There is some spurring in the thoracic spine. There is large calcified mass in the spinal canal on the right side at the level of T7-8. Ther e is displacement of the thoracic spinal cord to the left side. This is probably a large calcified di sc herniation. IMPRESSION: Pulmonary interstitial fibrosis. Nodular subpleural densities in the lower lobes probably from inflam matory disease. Pulmonary emphysema. No evidence of pulmonary embolism. T7-8 right side calcified disc herniation with impingement on the thoracic spinal cord.
== END | disposition home or self-care (01) ==
LOC: RADCTMAIN 16:56
PROVIDERS: ATTEND Internal Medicine
DX: R06.09 Other forms of dyspnea (principal)
CPT/HCPCS: 71275; Q9967

== ENCOUNTER → 2019-10-10 | Outpatient (CLI) | payer BC ==
[2019-10-10 11:24] LABS: Basophils % (A) 1 %; Eosinophils # (A) 0.3 k/uL (0-0.7); Eosinophils % (A) 4 %; HCT 45.7 % (39.0-53.0); HGB 14.9 gm/dL (13.0-17.5); Lymphocytes # (A) 2.1 k/uL (1.0-4.8); Lymphocytes % (A) 30 %; MCH 31.2 pg (25.0-35.0); MCHC 32.7 g/dL (31.0-37.0); MCV 95.5 fL (80.0-100.0); Mean Platelet Volume 8.1; Monocytes # (A) 0.5 k/uL (0-1.0); Monocytes % (A) 7 %; Neutrophils # (A) 3.9 k/uL (1.3-7.7); Neutrophils % (A) 55 %; Platelet Count 262 k/uL (150-450); RBC 4.78 m/uL (4.30-5.90); RDW 13.5 % (11.5-15.5)
[2019-10-10 13:34] LABS: Erythrocyte Sedimentation Rate 21 mm/hr (0-15)
[2019-10-10 16:51] LABS: African American GFR (CKD) 74.7 (60.0-200.0); Anion Gap 11.4 mmol/L (4.00-12.00); Calcium 9.9 mg/dL (8.7-10.3); Carbon Dioxide 24.6 mmol/L (21.6-31.8); Non-African American GFR(CKD) 64.4 (60.0-200.0); Potassium 3.9 mmol/L (3.5-5.5)
== END | disposition home or self-care (01) ==
LOC: LABWHC1 10:50
PROVIDERS: ATTEND Internal Medicine
DX: R06.02 Shortness of breath (principal); R07.81 Pleurodynia
CPT/HCPCS: 36415; 80048; 85025; 85379; 85652

== ENCOUNTER → 2020-04-08 | Outpatient (CLI) | payer BC ==
[2020-04-08 11:10] LABS: Basophils # (A) 0.1 k/uL (0-0.2); Basophils % (A) 1 %; Eosinophils # (A) 0.3 k/uL (0-0.7); Eosinophils % (A) 4 %; HCT 45.9 % (39.0-53.0); Lymphocytes # (A) 1.8 k/uL (1.0-4.8); Lymphocytes % (A) 25 %; MCH 31.1 pg (25.0-35.0); MCHC 32.6 g/dL (31.0-37.0); MCV 95.4 fL (80.0-100.0); Mean Platelet Volume 8.9; Monocytes # (A) 0.5 k/uL (0-1.0); Monocytes % (A) 6 %; Neutrophils # (A) 4.5 k/uL (1.3-7.7); Neutrophils % (A) 61 %; Platelet Count 238 k/uL (150-450); RBC 4.81 m/uL (4.30-5.90); RDW 12.8 % (11.5-15.5); WBC 7.4 k/uL (3.8-10.6)
[2020-04-08 11:17] LABS: INR 1.1 (<1.2)
[2020-04-08 11:19] LABS: Potassium 4.1 mmol/L (3.5-5.1)
== END | disposition home or self-care (01) ==
LOC: LABPAT 10:41
PROVIDERS: ATTEND Thoracic Surgery (Cardiothoracic Vascular Surgery)
DX: Z01.818 Encounter for other preprocedural examination (principal); U07.1 COVID-19
CPT/HCPCS: 80051; 82565; 82947; 84520; 85025; 85610; 85730; U0003; C9803

== ENCOUNTER → 2020-04-08 | Outpatient (CLI) | payer BC ==
--- NOTE | 2020-04-09 18:44 | CT ---
EXAMINATION TYPE: CT chest w con DATE OF EXAM: 04/08/2020 COMPARISON: CTA chest 10/10/2019 HISTORY: Lung nodule. CT DLP: 820 mGycm Automated exposure control for dose reduction was used. CONTRAST: CT scan of the chest is performed with IV Contrast, patient injected with 100 mL of Isovue M300. FINDINGS: LUNGS: There is marked centrilobular emphysema predominantly of the upper lungs. Patchy interstitial coarsening at the lung bases. Bilateral lower lobe subpleural solid pulmonary nodules are redemonstra suki, largest measuring 8 mm (4:36). No pleural effusion. No pneumothorax. The tracheobronchial tree i s patent. MEDIASTINUM/SOFT TISSUES: No axillary, hilar, or mediastinal lymphadenopathy greater than 1 cm. Cardi ac size is normal. Calcified coronary artery disease. No pericardial effusion. No thoracic aortic ane urysm. OSSEOUS: Degenerative changes of the spine. There is significant posterior calcified disc osteophyte complex of the thoracic spine at T7-T8 with mass effect on the right spinal canal and lateral recess. IMPRESSION: 1. Bilateral lower lobe pulmonary nodules measuring up to 8 mm are unchanged on 6 month follow-up. Jaior sandhu Fleischner 2017 criteria follow-up CT in 1 year is recommended. 2. Emphysema. 3. Calcified disc osteophyte complex at T7-T8 with leftward displacement of the thoracic cord and mas s effect on the right lateral recess.
== END | disposition home or self-care (01) ==
LOC: RADCTMAIN 10:28
PROVIDERS: ATTEND Thoracic Surgery (Cardiothoracic Vascular Surgery)
DX: R91.8 Other nonspecific abnormal finding of lung field (principal); J43.9 Emphysema, unspecified; M25.78 Osteophyte, vertebrae
CPT/HCPCS: 82565; 84520; 71260; Q9967

== ENCOUNTER → 2020-05-17 | Outpatient (CLI) | payer BC ==
[2020-05-17 15:34] LABS: Basophils # (A) 0.1 k/uL (0-0.2); Basophils % (A) 1 %; Eosinophils # (A) 0.3 k/uL (0-0.7); Eosinophils % (A) 4 %; HCT 47.9 % (39.0-53.0); HGB 15.8 gm/dL (13.0-17.5); Lymphocytes # (A) 1.7 k/uL (1.0-4.8); Lymphocytes % (A) 22 %; MCH 32.3 pg (25.0-35.0); MCHC 32.9 g/dL (31.0-37.0); MCV 98.1 fL (80.0-100.0); Mean Platelet Volume 9.3; Monocytes # (A) 0.5 k/uL (0-1.0); Monocytes % (A) 7 %; Neutrophils # (A) 4.9 k/uL (1.3-7.7); Neutrophils % (A) 64 %; Platelet Count 217 k/uL (150-450); RBC 4.89 m/uL (4.30-5.90); RDW 12.8 % (11.5-15.5); WBC 7.8 k/uL (3.8-10.6)
[2020-05-17 15:55] LABS: INR 1.1 (<1.2); Partial Thromboplastin Time 25.2 sec (22.0-30.0); Potassium 4.4 mmol/L (3.5-5.1); Prothrombin Time 10.8 sec (9.0-12.0)
== END | disposition home or self-care (01) ==
LOC: LABPAT 13:51
PROVIDERS: ATTEND Thoracic Surgery (Cardiothoracic Vascular Surgery)
DX: Z01.818 Encounter for other preprocedural examination (principal); R91.8 Other nonspecific abnormal finding of lung field; U07.1 COVID-19
CPT/HCPCS: 80051; 82565; 82947; 85025; 85610; 85730; 36415; U0003

== ENCOUNTER 2020-05-23 11:39 | Inpatient (IN) | payer BC ==
[2020-05-23] MEDS ORDERED: LACTATED RINGERS 1,000 ML IV ONE ×2 (12:20→15:33)
[2020-05-23] MEDS ORDERED: LIDOCAINE 1% (10MG/ML) FOR IV START INTRADERMA ONE (12:20)
[2020-05-23 12:26] LABS: Glucose,Whole Blood 325 mg/dL (75-99)
[2020-05-23] MEDS ORDERED: INSULIN ASPART (NovoLOG) 100 UNIT/ML VIAL SQ ONE ×2 (12:40→15:59)
[2020-05-23] MEDS ORDERED: MIDAZOLAM 2 MG/2 ML VIAL IV ONE (13:00)
--- NOTE | 2020-05-23 13:29 | P.OP ---
Date of Procedure: 05/23/20 Preoperative Diagnosis: Coronary artery disease Postoperative Diagnosis: Same Procedure(s) Performed: Off-pump CABG 4 with SEARS to LAD, left radial artery to intermediate, saphenous vein grafts to first diagonal and right coronary artery, endovascular vein harvest, and the radial harvest, YIN by anesthesia, occlusion of left atrial appendage with 35 mm AtriClip. Implants: 35 mm AtriCure clip Anesthesia: GETA Surgeon: Sunny Carl Varnish Inspector #1: Jhonny Gonzalez Varnish Inspector #2: Franco Morocho Estimated Blood Loss (ml): 200 IV fluids (ml): 1,000 Urine output (ml): 500 Pathology: none sent Condition: stable Disposition: ICU Indications for Procedure: 64-year-old male originally presented with acute coronary syndrome in March. He is found to have severely diminished left ventricular ejection fraction less than 20%. He was also found to have left apical thrombus in the left ventricle. The night of the cath he had a CHILDREN'S INSTITUTION ATTENDANT event felt to be consistent with stroke. Was decided to stabilize the patient, anticoagulate him for 4-6 weeks and then repeat a YIN. This was done. This demonstrated resolution of the left apical thrombus and somewhat improved left ventricular ejection fraction with an EF of 20-25%. Elective CABG was now scheduled. Operative Findings: Left ventricular ejection fraction was 20-25%. There was evidence of subacute infarction of the inferior and lateral hylton. Coronary were diffusely diseased. The LAD and diagonal were the best targets. The right coronary and intermediate were graftable but heavily diseased. The posterior lateral branch was not considered to be graftable. No other significant coronary arteries noted on the surface of the heart. YIN at completion of the procedure demonstrated improved left ventricular function especially improved motion of the interventricular septum and the anterior wall. Cardiac output didn't improve from 3.5-5 following revascularization. This was off any inotropic support. Description of Procedure: The patient was brought to the operating room, placed supine on the operating table, anesthetized and intubated. Right IJ's [employer] catheter and radial artery line had been started and preop old. YIN probe was placed. YIN demonstrated markedly decreased left ventricular ejection fraction around 20%. There was no significant valvular abnormalities noted. There was no evidence of residual thrombus in the apex. The anterior torso and lower extremities and left upper extremity were sterilely prepped and draped. The left radial artery was harvested using endovascular vein harvest technique and was prepared on the back table. Simultaneously the greater saphenous vein was harvested from the left lower extremity extending from the ankle to the thigh. It was of good quality and was prepared on the back table. Simultaneously midline sternotomy was performed, left hemisternum retracted upwards and the left internal mammary artery harvested on a vascular pedicle, left intact on its origin from subclavian and divided distally. There was an excellent conduit. The left pleural space was drained with 32-Liberian chest tube. Once the left arm was closed and dressed it was tucked at the side. Standard sternal retractor was placed. The pericardium was opened in the midline and the heart exposed with pericardial sutures. Patient was systemically heparinized and the a CTs were maintained greater than 250 during grafting. Suction stabilization was used during distal anastomosis. The SEARS to the LAD was performed first. The LAD was a 2-2.5 mm vessel running visibly on the anterior wall of the heart. There was palpable disease in the proximal third and it was grafted just beyond this. Was opened and blood flow control with a 2 mm flow through. End to side anastomosis between the SEARS and the LAD was performed with running 8-0 Prolene suture. On completion anastomosis the flow through was removed effectively probing the proximal distal portion anastomosis. Suture was tied with good result and hemostasis. Inflow was open. The MEDARDO pedicle was tacked to the surrounding epicardium with 6-0 silk sutures. Saphenous vein and radial artery were not checked. It was decided to put the saphenous vein to the RCA, KIM and diagonal and the left radial artery to the intermediate. Right coronary artery was dissected out distally. It was a relatively small vessel with diffuse disease present. It was opened just prior to its bifurcation. 1.5 mm probe threaded through this into the PDA but did not thread into the distal RCA toward the KIM. Blood flow was controlled with a 1.5 mill meter flow through. Piece of saphenous vein was cut to appropriate length loaded on passport anastomotic connector and connected to the ascending aorta just above the sinotubular junction in the midline. It was brought around the right AV groove to the right coronary artery. Anastomosis was to the right coronary artery was performed with running 7-0 Prolene suture. On completion the anastomosis the flow through was removed 50 probe the proximal distal portion anastomosis. Suture was tied with good resultant hemostasis and the inflow opened. Heart was lowered into anatomic position. The graft was noted to lay well with more than adequate length. Next the high lateral wall was exposed. The intermediate coronary artery was stabilized. This was a heavily diseased proximal vessel that this appeared intramyocardially. It was dissected out for several centimeters intramyocardially. A remainder diseased vessel but was softer and felt to be graftable. It was opened. A 1.5 mm probe would not pass. Blood flow was controlled with a 1 mm flow through. Anastomosis of the radial artery the intermediate coronary artery was performed with running 7-0 Prolene suture. On completion anastomosis flow through was removed effectively probing the proximal distal portion anastomosis. Good backbleeding was noted from the radial artery. This was controlled with a bulldog clamp. Piece of saphenous vein was now prepared to appropriate length and loaded on passport anastomotic connector. It was connected to the mid ascending aorta to the left of midline brought beneath the SEARS to the first diagonal branch. The first diagonal was stabilized. It was a 1.5 mm vessel. It was opened and blood flow control with a 1.5 mm flow through. Anastomosis of the diagonal with the saphenous vein was performed with running 7-0 Prolene suture. On completion anastomosis flow through was removed effectively probing the proximal distal portion of the anastomosis. Inflow was open and the graft was noted to lay well. We next placed 2 bulldog clamps very proximally on the saphenous vein gr aft to the diagonal. Longitudinal incision was performed in the proximal anastomosis the radial artery was performed with running 7-0 Prolene suture. On completion anastomosis was de-aired by backbleeding. Inflow was opened and grafts lay well. There was no bleeding from any of the anastomoses. We now explored the posterior lateral branch. Was very small vessel that disappeared into the myocardial fat as it came up from the AV groove. We dissected down into the statin dissected the vessel all the way down into the AV groove. It remained a relatively small vessel about 1 mm in diameter with diffuse disease present. It was not felt to be graftable. Due to the patient's poor ventricular function, it was decided to place a occlusion device on the base of the left atrial appendage due to high risk of atrial fibrillation. This was especially apropos given his previous left ventricular thrombus and stroke. The base of the left atrial appendage was measured and a 35 mm AtriCure clip was chosen and applied to the base of the left atrial appendage. This proceeded uneventfully. Heparin was now reversed with protamine. Good hemostasis was obtained throughout. Mediastinum was drained with a 36-Liberian chest tube. Chest was irrigated with antibiotic solution and the sternum closed with 8 sternal wires. Fascia was closed with 0 Ethibond. The leg and arm and been closed with layers of Vicryl suture. Subcutaneous and subcuticular layers in the chest were closed with layers of Vicryl suture. Skin glue and dry sterile dressings were applied and the patient was transferred to the CVICU in stable condition. Should be noted that the YIN on completion demonstrated improved left ventricular function particularly of the anterior wall and interventricular septum and the cardiac index it also improved significantly.
[2020-05-23 13:56] LABS: Glucose,Whole Blood 306 mg/dL (75-99)
[2020-05-23] MEDS ORDERED: BUPIVACAINE (PF) 0.5% 30 ML VIAL SQ ONE ×2 (13:59)
[2020-05-23] MEDS ORDERED: LIDOCAINE 1% INJ 10MG/ML (20 ML MDV) ONE (14:01)
[2020-05-23] MEDS ORDERED: GLYCOPYRROLATE 0.2 MG/ML 2 ML VIAL ONE (14:01)
[2020-05-23] MEDS ORDERED: ROCURONIUM 10 MG/ML (10 ML VIAL) IV ONE (14:01)
[2020-05-23] MEDS ORDERED: MIDAZOLAM 2 MG/2 ML VIAL ONE (14:01)
[2020-05-23] MEDS ORDERED: NEOSTIGMINE 1 MG/ML 10 ML VIAL ONE (14:01)
[2020-05-23] MEDS ORDERED: PROPOFOL 10 MG/ML 20 ML VIAL IV ONE (14:01)
[2020-05-23] MEDS ORDERED: SUCCINYLCHOLINE CHLORIDE 100 MG/5 ML SYR IV ONE (14:01)
[2020-05-23] MEDS ORDERED: fentaNYL (PF) 50 MCG/ML 2 ML AMP ONE (14:01)
[2020-05-23 15:15] LABS: Glucose,Whole Blood 301 mg/dL (75-99)
--- NOTE | 2020-05-23 15:18 | P.OP ---
Date of Procedure: 05/23/20 Preoperative Diagnosis: Bilateral interstitial disease, bilateral pulmonary nodularity Postoperative Diagnosis: Same Procedure(s) Performed: Left thoracoscopic lung biopsy [facility] Surgeon: Sunny Carl Estimated Blood Loss (ml): 5 IV fluids (ml): 200 Pathology: other (Biopsies of left upper and left lower lobe for both pathology and cultures) Condition: stable Disposition: PACU Indications for Procedure: 64-year-old male with exertional dyspnea and bilateral interstitial disease. This is been progressive. He has small bilateral lower lobe nodularity as well. Biopsy was requested by Dr. Hutchins. Operative Findings: There was significant anthracotic pigmentation of bilateral lobes. There was some degree of adhesions both to the parietal pleura as well as between the lobes. The lung tissue itself had relatively normal compliance. There were some very tiny nodules noted in the lower lobes. Description of Procedure: The patient was brought to the operating room, placed supine on the operating table, anesthetized and intubated with a double-lumen endotracheal tube. Tube was positioned with fiberoptic bronchoscopy and secured. The patient was turned in the right lateral decubitus position and the left chest was sterilely prepped and draped. 3 one-inch incisions were made in the left chest cavity. Video thoracoscope was introduced. Adhesions of the visceral to parietal pleura were taken down with electrocautery. A generous wedge biopsy of the inferior portion of the left lower lobe was taken from the medial to the posterior region. On removing this from the chest it was evident there were 2 small nodules present within it. A small piece of the tissue was removed and sent for culture and the remainder was sent for permanent section. The second somewhat smaller wedge biopsy was obtained of the upper lobe. This was also sent for both culture and pathology. Following completion of the 2 wedge resections, 28-Malian chest tube was placed posterior apically through separate stab incision. The lung was then reinflated under thoracoscopic visualization. Rib blocks were performed at the rectal level of the incisions with half percent Marcaine. Incisions were closed with layers of Vicryl suture. They were dressed with skin glue and Band-Aids and it drain sponge was placed around the chest tube which was connected to a Pleur-evac. Patient was turned supine and extubated and transferred to recovery room in stable condition.
[2020-05-23] MEDS ORDERED: HYDROmorphone 0.5 MG/0.5 ML SYRINGE IVP ONE ×3 (15:24→15:51)
--- NOTE | 2020-05-23 15:43 | XR ---
EXAMINATION TYPE: XR chest 1V portable DATE OF EXAM: 05/23/2020 CLINICAL HISTORY: Post VATS TECHNIQUE: Frontal portable view of the chest obtained. COMPARISON: Chest radiograph 03/15/2020 FINDINGS: Left-sided chest tube with distal tip over the left lung apex. Low lung volumes accentuates the cardiac silhouette. Subcutaneous emphysema over the left lower chest. Right basilar atelectasis. No pneumothorax or pleural effusion. IMPRESSION: 1. Left chest tube distal tip over the left lung apex. Subcutaneous emphysema of the left lower chest status post VATS, with no evidence of pneumothorax. 2. Right basilar atelectasis.
[2020-05-23] MEDS ORDERED: ONDANSETRON 4 MG/2 ML VIAL IVP PRN (16:24)
[2020-05-23] MEDS ORDERED: IPRATROPIUM-ALBUTEROL 3 ML NEB IH PRN (16:24)
[2020-05-23] MEDS ORDERED: SODIUM CHLORIDE 0.9% 1,000 ML IV SCH (16:24)
[2020-05-23 17:55] LABS: Glucose,Whole Blood 252 mg/dL (75-99)
[2020-05-23] MEDS: traMADol 50 MG TAB PO SCH ×2 (17:57→23:38)
[2020-05-23] MEDS: glipiZIDE 10 MG TAB PO SCH (17:57)
[2020-05-23] MEDS: metFORMIN 500 MG TAB PO SCH (17:57)
[2020-05-23] MEDS: ceFAZolin 3 GM in SODIUM CHLORIDE 0.9% 100 ML IVPB SCH (17:58)
[2020-05-23] MEDS: HEPARIN SODIUM,PORCINE 5,000 UNIT/ML 1 ML VIAL SQ SCH ×2 (17:59→23:37)
[2020-05-23] MEDS: INSULIN ASPART (NovoLOG) 100 UNIT/ML VIAL SQ SCH ×2 (18:09→20:46)
[2020-05-23] MEDS: ACETAMINOPHEN IV (For NPO) 1,000 MG in EMPTY BAG 1 BAG IVPB SCH ×2 (18:34→23:37)
[2020-05-23] MEDS: IPRATROPIUM-ALBUTEROL 3 ML NEB IH SCH ×2 (18:52→20:21)
[2020-05-23 20:43] LABS: Glucose,Whole Blood 217 mg/dL (75-99)
[2020-05-23] MEDS ORDERED: METFORMIN HCL PO SCH (21:00)
[2020-05-23] MEDS ORDERED: GLYBURIDE PO SCH (21:00)
[2020-05-24] MEDS: ACETAMINOPHEN IV (For NPO) 1,000 MG in EMPTY BAG 1 BAG IVPB SCH ×2 (04:58→12:50)
[2020-05-24] MEDS: traMADol 50 MG TAB PO SCH ×2 (04:58→11:24)
[2020-05-24] MEDS: ceFAZolin 3 GM in SODIUM CHLORIDE 0.9% 100 ML IVPB SCH (06:00)
[2020-05-24] MEDS: PANTOPRAZOLE 40 MG TABLET PO SCH (06:03)
[2020-05-24] MEDS: glipiZIDE 10 MG TAB PO SCH ×2 (06:53→16:36)
[2020-05-24] MEDS: metFORMIN 500 MG TAB PO SCH ×2 (06:53→16:36)
[2020-05-24] MEDS ORDERED: INSULIN DETEMIR (LEVEMIR) 100 UNIT/ML SYR SQ SCH (07:00)
[2020-05-24] MEDS: IPRATROPIUM-ALBUTEROL 3 ML NEB IH SCH ×4 (07:10→19:54)
[2020-05-24] MEDS: INSULIN ASPART (NovoLOG) 100 UNIT/ML VIAL SQ SCH ×4 (07:10→20:09)
[2020-05-24 07:11] LABS: Glucose,Whole Blood 263 mg/dL (75-99)
[2020-05-24 07:23] LABS: Basophils % (A) 0 %; Eosinophils # (A) 0.1 k/uL (0-0.7); Eosinophils % (A) 2 %; HCT 49.2 % (39.0-53.0); HGB 15.8 gm/dL (13.0-17.5); Lymphocytes # (A) 1.7 k/uL (1.0-4.8); Lymphocytes % (A) 23 %; MCH 31.4 pg (25.0-35.0); MCHC 32.1 g/dL (31.0-37.0); MCV 97.8 fL (80.0-100.0); Monocytes # (A) 0.4 k/uL (0-1.0); Monocytes % (A) 6 %; Neutrophils % (A) 68 %; Platelet Count 215 k/uL (150-450); RBC 5.03 m/uL (4.30-5.90); RDW 13.5 % (11.5-15.5); WBC 7.4 k/uL (3.8-10.6)
[2020-05-24 07:26] LABS: African American GFR (CKD) >90 (>60 ml/min/1.73 sqM); Anion Gap 11 mmol/L; Blood Urea Nitrogen 8 mg/dL (9-20); Calcium 8.4 mg/dL (8.4-10.2); Carbon Dioxide 25 mmol/L (22-30); Chloride 98 mmol/L (98-107); Glucose 291 mg/dL (74-99); Non-African American GFR(CKD) 83 (>60 ml/min/1.73 sqM); Sodium 134 mmol/L (137-145)
[2020-05-24] MEDS: HEPARIN SODIUM,PORCINE 5,000 UNIT/ML 1 ML VIAL SQ SCH ×3 (08:40→22:57)
[2020-05-24] MEDS: KETOROLAC 15 MG/ML 1 ML VIAL IVP SCH ×2 (08:40→15:01)
[2020-05-24] MEDS: amLODIPine 10 MG TAB PO SCH (08:41)
[2020-05-24] MEDS: ATORVASTATIN 20 MG TAB PO SCH (08:41)
[2020-05-24] MEDS: ASPIRIN 81 MG PO SCH (08:41)
[2020-05-24] MEDS: lisinopriL 20 MG TAB PO SCH (08:41)
[2020-05-24] MEDS ORDERED: NON FORMULARY DRUG (Amlodipine Besylate/Benazepril [Lotrel 10-20 Mg] 1 EACH Capsule) PO SCH (09:00)
[2020-05-24] MEDS ORDERED: MAGNESIUM HYDROXIDE 2,400 MG/10 ML CUP PO PRN (09:31)
--- NOTE | 2020-05-24 09:38 | P.PN ---
<Laura Camara - Last Filed: 05/24/20 09:17> Subjective Progress Note Date: 05/24/20 Principal diagnosis: Bilateral interstitial disease, bilateral pulmonary nodularity. Previous medical history of hypertension, hyperlipidemia, uncontrolled type 2 diabetes with hyperglycemia , previous tobacco dependence, perforated ulcer, right renal mass status post partial nephrectomy in 2017, obesity, and noncompliance with treatment recommendations. POD #1 left thoracoscopic lung biopsy The patient was sitting up in a recliner in no acute distress this morning he did complain of significant pain to his chest tube site and stated he didn't want to take deep breaths because of that. Release sinus rhythm. Blood sugars remain uncontrolled in the 200s, patient did not get his diabetic meds yesterday morning before surgery including his Levemir. Objective - Vital Signs Vital signs: Vital Signs Temp 97.7 F 05/24/20 03:05 Pulse 82 05/24/20 07:28 Resp 18 05/24/20 06:16 BP 173/102 05/24/20 03:05 Pulse Ox 92 L 05/24/20 06:16 Intake & Output 05/23/20 05/24/20 05/24/20 18:59 06:59 18:59 Intake Total 750 Output Total 35 570 Balance 715 -570 Weight 122.6 kg 124.5 kg Intake: IV 750 Output: Chest Tube Drainage 25 70 Chest Tube Left 25 70 Urine 500 Estimated Blood Loss 10 Other: # Voids 0 1 - Constitutional General appearance: Present: cooperative, no acute distress, obese - Respiratory Details: Lungs sounds diminished bilaterally, coarse on the left side. Respirations even, nonlabored. Currently on 2 L nasal cannula with oxygen saturation 92%, reportedly 87% oxygenation on room air this morning. He was able to achieve 1500 mL on his incentive spirometry this morning. Left pleural chest tube present to waterseal, 70 mL of thin serosanguineous drainage overnight, 120 mL since surgery, no air leak present. - Cardiovascular Details: S1, S2 present. Regular rate and rhythm, sinus rhythm on telemetry. Palpable peripheral pulses bilaterally. No edema present. No calf pain or tenderness noted. - Gastrointestinal Gastrointestinal Comment(s): Abdomen soft, nontender, slightly distended. Active bowel sounds present 4 quadrants. Tolerating diet. - Genitourinary Genitourinary Comment(s): Continues to void - Integumentary Integumentary Comment(s): Skin is warm and dry with evidence of good perfusion - Neurologic Neurologic: Present: CNII-XII intact - Musculoskeletal Musculoskeletal: Present: gait normal, strength equal bilaterally - Psychiatric Psychiatric: Present: A&O x's 3, appropriate affect, intact judgment & insight - Allied health notes Allied health notes reviewed: nursing - Labs CBC & Chem 7: 05/24/20 06:48 05/24/20 06:48 Labs: Abnormal Lab Results - Last 24 Hours (Table) 05/23/20 05/23/20 05/23/20 Range/Units 12:09 13:50 15:13 Sodium (137-145) mmol/L BUN (9-20) mg/dL Glucose (74-99) mg/dL POC Glucose (mg/dL) 325 H 306 H 301 H (75-99) mg/dL 05/23/20 05/23/20 05/24/20 Range/Units 17:52 20:41 06:48 Sodium 134 L (137-145) mmol/L BUN 8 L (9-20) mg/dL Glucose 291 H (74-99) mg/dL POC Glucose (mg/dL) 252 H 217 H (75-99) mg/dL 05/24/20 Range/Units 07:09 Sodium (137-145) mmol/L BUN (9-20) mg/dL Glucose (74-99) mg/dL POC Glucose (mg/dL) 263 H (75-99) mg/dL Microbiology - Last 24 Hours (Table) 05/23/20 14:41 Gram Stain - Preliminary Lung - Left Upper Lobe Wound Culture - Preliminary 05/23/20 14:41 Gram Stain - Preliminary Lung - Left Lower Lobe Tissue Culture - Preliminary 05/23/20 14:41 Fungal Culture - Preliminary Lung - Left Lower Lobe 05/23/20 14:41 Anaerobic Culture - Preliminary Lung - Left Lower Lobe 05/23/20 14:41 Fungal Culture - Preliminary Lung - Left Upper Lobe 05/23/20 14:41 Anaerobic Culture - Preliminary Lung - Left Upper Lobe - Imaging and Cardiology Chest x-ray: image reviewed Assessment and Plan Assessment: 1. Bilateral interstitial disease, bilateral pulmonary nodularity, status post left thoracoscopic lung biopsy 2. Hypertension 3. Hyperlipidemia 4. Uncontrolled type 2 diabetes with hyperglycemia 5. Previous tobacco dependence 6. Perforated ulcer 7. Right renal mass status post partial nephrectomy in 2017 8. Obesity 9. Noncompliance with treatment recommendations Plan: 1. No air leak present, will review chest x-ray and if no pneumothorax will discontinue chest tube today 2. Repeat chest x-ray later today versus tomorrow morning 3. Wean O2 as tolerated. Encourage incentive spirometry 10 times every hour while awake 4. Increase activity, ambulate in hallway 5. Pain control with current medication regimen 6. Diabetic management per Dr. Gil 7. Will discharge to home later today versus tomorrow dependent on getting better control of her blood sugars and trying to wean off of oxygen. Will make follow-up appointments for Dr. Carl, Dr. Armijo, and Dr. Hutchins Seen and examined and agree with above Time with Patient: Greater than 30 <Reno Alonzo - Last Filed: 05/24/20 11:00> Objective - Vital Signs Vital signs: Vital Signs Temp 97.7 F 05/24/20 08:00 Pulse 96 05/24/20 08:00 Resp 17 05/24/20 08:00 BP 158/95 05/24/20 08:00 Pulse Ox 100 05/24/20 08:00 Intake & Output 05/23/20 05/24/20 05/24/20 18:59 06:59 18:59 Intake Total 750 Output Total 35 570 Balance 715 -570 Weight 122.6 kg 124.5 kg Intake: IV 750 Output: Chest Tube Drainage 25 70 Chest Tube Left 25 70 Urine 500 Estimated Blood Loss 10 Other: # Voids 0 1 - Labs CBC & Chem 7: 05/24/20 06:48 05/24/20 06:48 Labs: Abnormal Lab Results - Last 24 Hours (Table) 05/23/20 05/23/20 05/23/20 Range/Units 12:09 13:50 15:13 Sodium (137-145) mmol/L BUN (9-20) mg/dL Glucose (74-99) mg/dL POC Glucose (mg/dL) 325 H 306 H 301 H (75-99) mg/dL 05/23/20 05/23/20 05/24/20 Range/Units 17:52 20:41 06:48 Sodium 134 L (137-145) mmol/L BUN 8 L (9-20) mg/dL Glucose 291 H (74-99) mg/dL POC Glucose (mg/dL) 252 H 217 H (75-99) mg/dL 05/24/20 Range/Units 07:09 Sodium (137-145) mmol/L BUN (9-20) mg/dL Glucose (74-99) mg/dL POC Glucose (mg/dL) 263 H (75-99) mg/dL Microbiology - Last 24 Hours (Table) 05/23/20 14:41 Gram Stain - Preliminary Lung - Left Upper Lobe Wound Culture - Preliminary 05/23/20 14:41 Gram Stain - Preliminary Lung - Left Lower Lobe Tissue Culture - Preliminary 05/23/20 14:41 Fungal Culture - Preliminary Lung - Left Lower Lobe 05/23/20 14:41 Anaerobic Culture - Preliminary Lung - Left Lower Lobe 05/23/20 14:41 Fungal Culture - Preliminary Lung - Left Upper Lobe 05/23/20 14:41 Anaerobic Culture - Preliminary Lung - Left Upper Lobe Assessment and Plan Plan: The patient was seen and examined, I agree with the plan documented by Nurse Practitioner Laura Camara
--- NOTE | 2020-05-24 09:39 | XR ---
EXAMINATION TYPE: XR chest 2V DATE OF EXAM: 05/24/2020 COMPARISON: 05/23/2020 TECHNIQUE: PA and lateral views submitted. HISTORY: Post VATS FINDINGS: Chest tube noted. Bilateral consolidation seen. No sizable pneumothorax heart size stable. Biapical p leural thickening. Small amount of subcutaneous emphysema noted. IMPRESSION: 1. Bilateral infiltrates correlate clinically.
[2020-05-24] MEDS: SENNOSIDES 8.6 MG TAB PO SCH ×2 (11:24→20:09)
[2020-05-24 12:18] LABS: Glucose,Whole Blood 289 mg/dL (75-99)
--- NOTE | 2020-05-24 12:26 | P.CNPUL ---
History of Present Illness Consult date: 05/24/20 Requesting physician: Sunny Carl Reason for consult: dyspnea, pulmonary fibrosis Chief complaint: Shortness of breath History of present illness: This is a very pleasant 64-year-old -[place] African gentleman who follows with Dr. Armijo as his primary care provider. He has a history of hyperlipidemia, hypertension, diabetes mellitus, gastroesophageal reflux disease, obstructive sleep apnea, diabetic peripheral neuropathy, history of malignant neoplasm of the kidney. He is also been seen in our office by Dr. Hutchins for complaints of dyspnea on exertion. Former smoker of approximately 30 years. FEV1 value 79% of predicted. 6 minute walk revealed a desaturation to 90%. Chest x-ray reveals evidence of nonspecific interstitial pneumonia. There was concern regarding interstitial lung disease/pulmonary fibrosis. He was referred to Dr. Carl for a VATS lung biopsy. He was admitted here yesterday and electively he had undergone left thoracoscopic lung biopsy. Pathology is pending. He is seen today in consultation on the selective care unit. He is resting comfortably in bed. Left-sided chest tube remains in place to waterseal. No leak detected. He is pulling approximately 1500 ML's on the incentive spirometer. Currently on 2 L/m per nasal cannula. He had been having some issues with increased abdominal distention and nausea and vomiting. No recent bowel movement. He'll be receiving Senokot today. White count 7.4. Hemoglobin 15.8. Sodium 134. Potassium 4.0. Creatinine 0.98. He received 2 doses of cefazolin. Remains on bronchodilators. Heparin for DVT prophylaxis. Review of Systems REVIEW OF SYSTEMS: CONSTITUTIONAL: Denies any recent significant weight loss or weight gain. EYES: Denies change in vision. EARS, NOSE, MOUTH, THROAT: Denies headaches, denies sore throat. CARDIOVASCULAR: Denies chest pain, palpitations or syncopal episodes. RESPIRATORY: Positive for shortness of breath, no cough, congestion or hemoptysi s. GASTROINTESTINAL: Denies change in appetite, denies abdominal pain GENITOURINARY: Denies hematuria, denies infections. MUSKULOSKELETAL: Denies pain, denies swelling. INTEGUMENTARY: Denies rash, denies eczema. NEUROLOGICAL: Denies recent memory loss, no recent seizure activity. PSYCHIATRIC: Denies anxiety, denies depression. HEMATOLOGIC/LYMPHATIC: Denies anemia, denies enlarged lymph nodes. Past Medical History Past Medical History: Cancer, Diabetes Mellitus, GERD/Reflux, Hyperlipidemia, Hypertension, Skin Disorder Additional Past Medical History / Comment(s): pain sides of abdomen,neuropathy, skin disorder frequent skin boils,rt kidney CA, current cold sx.-states surgeon is aware, this surgery was rescheduled from Apr. because of elevated blood sugar-saw PCP who adjusted his insulin History of Any Multi-Drug Resistant Organisms: None Reported Additional Past Surgical History / Comment(s): repair perforated ulcer, I&D boil buttocks,partial rt kidney removed Past Anesthesia/Blood Transfusion Reactions: No Reported Reaction Smoking Status: Former smoker - Past Family History Mother Family Medical History: No Reported History Additional Family Medical History / Comment(s): The patient's mother had hypertension, sister with diabetes mellitus Medications and Allergies Home Medications Medication Instructions Recorded Confirmed Type Atorvastatin [Lipitor] 20 mg PO QAM 10/29/16 05/22/20 History Insulin Glargine [Lantus] 14 unit SQ QAM 11/23/16 05/22/20 History Omeprazole 40 mg PO QAM 11/23/16 05/22/20 History Famotidine 20 mg PO DAILY PRN 04/05/19 05/22/20 History glyBURIDE/METFORMIN HCL 2 tab PO BID 04/05/19 05/22/20 History [Glucovance 2.5-500 mg] Albuterol Inhaler [Ventolin Hfa 1 puff INHALATION DIRECTED PRN 04/08/20 05/22/20 History Inhaler] Aspirin [Adult Low Dose Aspirin EC] 81 mg PO DAILY 04/08/20 05/22/20 History amLODIPine BESYLATE/BENAZEPRIL 1 cap PO DAILY 04/08/20 05/22/20 History [Lotrel 10-20 MG] Allergies Allergy/AdvReac Type Severity Reaction Status Date / Time No Known Allergies Allergy Verified 05/22/20 08:52 Physical Exam Vitals: Vital Signs Temp Pulse Pulse Resp BP BP Pulse Ox 05/24/20 11:19 88 05/24/20 11:06 84 05/24/20 08:00 97.7 F 96 17 158/95 100 05/24/20 07:28 82 05/24/20 07:10 84 05/24/20 06:16 18 92 L 05/24/20 06:15 22 87 L 05/24/20 03:05 97.7 F 75 22 173/102 92 L 05/23/20 23:20 98.4 F 78 20 146/87 92 L 05/23/20 22:00 147/85 05/23/20 21:44 86 161/88 05/23/20 21:14 86 159/105 05/23/20 20:38 80 05/23/20 20:21 78 94 L 05/23/20 20:00 98.1 F 67 18 165/102 94 L 05/23/20 19:30 20 86 L 05/23/20 18:30 78 17 141/88 95 05/23/20 18:00 78 17 162/102 95 05/23/20 17:30 68 18 151/92 93 L 05/23/20 17:15 72 17 159/98 92 L 05/23/20 17:00 77 17 160/100 94 L 05/23/20 16:45 84 18 144/86 92 L 05/23/20 16:30 98.3 F 75 17 158/86 93 L 05/23/20 16:00 71 18 145/75 100 05/23/20 15:45 75 18 148/80 97 05/23/20 15:30 81 18 148/83 96 05/23/20 15:15 87 16 163/94 92 L 05/23/20 15:09 98.1 F 96 16 185/97 100 05/23/20 13:45 75 148/80 97 05/23/20 13:25 81 16 155/92 93 L Intake and Output 05/23/20 05/24/20 05/24/20 22:59 06:59 14:59 Intake Total 100 Output Total 275 320 Balance -175 -320 Intake: IV 100 Output: Chest Tube Drainage 25 70 Chest Tube Left 25 70 Urine 250 250 Other: # Voids 2 1 Weight 124.5 kg GENERAL EXAM: Alert, active, very pleasant -[place] African 64-year-old gentleman, on 2 L nasal cannula, comfortable in no apparent distress. HEAD: Normocephalic. EYES: Normal reaction of pupils, equal size. NOSE: Clear with pink turbinates. THROAT: No erythema or exudates. NECK: No masses, no JVD. CHEST: No chest wall deformity. Left-sided chest tube secured in place, to waterseal, no leak. LUNGS: Equal air entry with crackles in the left lung base. CVS: S1 and S2 normal with no audible murmur, regular rhythm. ABDOMEN: No hepatosplenomegaly, normal bowel sounds, no guarding or rigidity. SPINE: No scoliosis or deformity SKIN: No rashes CENTRAL NERVOUS SYSTEM: No focal deficits, tone is normal in all 4 extremities. EXTREMITIES: There is no peripheral edema. No clubbing, no cyanosis. Peripheral pulses are intact. Results - Laboratory Findings CBC and BMP: 05/24/20 06:48 05/24/20 06:48 Abnormal lab findings: Abnormal Labs 05/23/20 05/23/20 05/23/20 12:09 13:50 15:13 Sodium BUN Glucose POC Glucose (mg/dL) 325 H 306 H 301 H 05/23/20 05/23/20 05/24/20 17:52 20:41 06:48 Sodium 134 L BUN 8 L Glucose 291 H POC Glucose (mg/dL) 252 H 217 H 05/24/20 07:09 Sodium BUN Glucose POC Glucose (mg/dL) 263 H - Diagnostic Findings Chest x-ray: image reviewed Assessment and Plan Assessment: 1 Dyspnea and the patient is suspected of having interstitial lung disease/pulmonary fibrosis. Status post left-sided VATS procedure with biopsy. Left chest tube in place. Pathology pending. 2 Remote history of 30 years of chronic tobacco dependence 3 obstructive sleep apnea 4 Diabetes mellitus 5 Diabetic peripheral neuropathy 6 Renal cell carcinoma status post right nephrectomy 7 Obesity 8 Hyperlipidemia Plan: The patient was seen and evaluated by Dr. Hutchins Chest x-ray and labs reviewed Continue bronchodilators Continue incentive spirometer Titrate down the FiO2 as tolerated CT services may remove the chest x-ray later today He will follow up with Dr. Hutchins in our office one week post discharge I, the cosigning physician, performed a history & physical examination of the patient. Lungs sounds with crackles in the left base. Maintaining good O2 saturations in the 90s on 2 L/m per nasal cannula. I discussed the assessment and plan of care with my nurse practitioner, Michelle Burnham. I attest to the above consultation as dictated by her. Time with Patient: Greater than 30
[2020-05-24 14:19] VITALS: BMI 36.2
[2020-05-24 16:58] LABS: Glucose,Whole Blood 305 mg/dL (75-99)
[2020-05-24 17:01] LABS: Hemoglobin A1C 12.2 % (4.0-6.0)
[2020-05-24 19:54] LABS: Glucose,Whole Blood 295 mg/dL (75-99)
[2020-05-24] MEDS: traMADol 50 MG TAB PO PRN (20:08)
[2020-05-24] MEDS: ACETAMINOPHEN TAB 500 MG TAB PO PRN (20:09)
--- NOTE | 2020-05-24 21:07 | P.CONS ---
History of Present Illness - Reason for Consult Consult date: 05/24/20 Medical management Requesting physician: Sunny Carl - Chief Complaint Left lung biopsy - History of Present Illness Consultation: This is a 64-year-old patient follows with Dr. Armijo. Chronic stable medical conditions include GERD, hyperlipidemia, hypertension, peripheral neuropathy, right kidney cancer r. Patient had exertional dyspnea. Found to have bilateral interstitial lung disease. Lung biopsy was requested by Dr. Hutchins. Patient has undergone left thoracoscopic lung biopsy. Has a left-sided chest tube in place. Some local chest pain. Baseline some shortness of breath. Accu-Cheks and been running high. Laying in bed. Review of systems: GEN.: Tired EYES: None HEENT: None NECK: None RESPIRATORY: Baseline shortness of breath] CARDIOVASCULAR: None GASTROINTESTINAL: None GENITOURINARY: None MUSCULOSKELETAL: None LYMPHATICS: None HEMATOLOGICAL: None PSYCHIATRY: None NEUROLOGICAL: Peripheral neuropathy Past medical history to include: Diabetes, GERD, hypertension, hyperlipidemia, peripheral neuropathy, right kidney cancer Social history: Lives with Him. On weekends drinks about a pint of miriam. Smoked a pack a day for 30 years stopped in 2015. Physical examination: VITAL SIGNS: 97.7, 96, 17, 158/95, 100% on 3 L GENERAL: BMI 36.2, laying in bed, uncomfortable. EYES: Pupils equal. Conjunctiva normal. HEENT: External appearance of nose and ears normal, oral cavity grossly normal. NECK: JVD unable to assess; masses not palpable. HEART: First and second heart sounds are normal; no edema. LUNGS: Respiratory rate increased decreased breath sounds, left lung chest tube. ABDOMEN: Soft, nontender, liver spleen not palpable, no masses palpable. PSYCH: Alert and oriented x3; mood and affect normal. NEUROLOGICAL: Cranial nerves grossly intact; no facial asymmetry, power and sensation grossly intact. LYMPHATICS: No lymph nodes palpable in the axilla and neck, INVESTIGATIONS, reviewed in the clinical context: White count 7.4 hemoglobin 15.8 platelets 215 potassium 4 creatinine 0.98 blood glucose 291 HbA1c 12.2 Chest x-ray film personally reviewed by me-scattered interstitial changes Assessment: -Status post left lung biopsy for interstitial lung disease, with a left-sided chest tube -Bilateral interstitial lung disease/pulmonary fibrosis- -Obesity BMI 36.2 -Diabetes mellitus type 2, uncontrolled with hyperglycemia -GERD -Hyperlipidemia -Essential hypertension - Plan: Patient's oral hypoglycemics have been resumed. On a diabetic diet. Keep on sliding scale insulin. Increase the Levemir to 20 units in the morning. Accu- Cheks continued to be followed. Other home medications were continued. The lab out of the staff development educator talk to the patient. Care was discussed with the patient question also. DVT prophylaxis Thank you Dr. Carl Past Medical History Past Medical History: Cancer, Diabetes Mellitus, GERD/Reflux, Hyperlipidemia, Hypertension, Skin Disorder Additional Past Medical History / Comment(s): pain sides of abdomen,neuropathy, skin disorder frequent skin boils,rt kidney CA, current cold sx.-states surgeon is aware, this surgery was rescheduled from Apr. because of elevated blood sugar-saw PCP who adjusted his insulin History of Any Multi-Drug Resistant Organisms: None Reported Additional Past Surgical History / Comment(s): repair perforated ulcer, I&D boil buttocks,partial rt kidney removed Past Anesthesia/Blood Transfusion Reactions: No Reported Reaction Smoking Status: Former smoker - Past Family History Mother Family Medical History: No Reported History Medications and Allergies Home Medications Medication Instructions Recorded Confirmed Type Atorvastatin [Lipitor] 20 mg PO QAM 10/29/16 05/22/20 History Insulin Glargine [Lantus] 14 unit SQ QAM 11/23/16 05/22/20 History Omeprazole 40 mg PO QAM 11/23/16 05/22/20 History Famotidine 20 mg PO DAILY PRN 04/05/19 05/22/20 History glyBURIDE/METFORMIN HCL 2 tab PO BID 04/05/19 05/22/20 History [Glucovance 2.5-500 mg] Albuterol Inhaler [Ventolin Hfa 1 puff INHALATION DIRECTED PRN 04/08/20 05/22/20 History Inhaler] Aspirin [Adult Low Dose Aspirin EC] 81 mg PO DAILY 04/08/20 05/22/20 History amLODIPine BESYLATE/BENAZEPRIL 1 cap PO DAILY 04/08/20 05/22/20 History [Lotrel 10-20 MG] Allergies Allergy/AdvReac Type Severity Reaction Status Date / Time No Known Allergies Allergy Verified 05/22/20 08:52 Physical Exam Vitals: Vital Signs Temp Pulse Pulse Resp BP BP Pulse Ox 05/24/20 07:28 82 05/24/20 07:10 84 05/24/20 06:16 18 92 L 05/24/20 06:15 22 87 L 05/24/20 03:05 97.7 F 75 22 173/102 92 L 05/23/20 23:20 98.4 F 78 20 146/87 92 L 05/23/20 22:00 147/85 05/23/20 21:44 86 161/88 05/23/20 21:14 86 159/105 05/23/20 20:38 80 05/23/20 20:21 78 94 L 05/23/20 20:00 98.1 F 67 18 165/102 94 L 05/23/20 19:30 20 86 L 05/23/20 18:30 78 17 141/88 95 05/23/20 18:00 78 17 162/102 95 05/23/20 17:30 68 18 151/92 93 L 05/23/20 17:15 72 17 159/98 92 L 05/23/20 17:00 77 17 160/100 94 L 05/23/20 16:45 84 18 144/86 92 L 05/23/20 16:30 98.3 F 75 17 158/86 93 L 05/23/20 16:00 71 18 145/75 100 05/23/20 15:45 75 18 148/80 97 05/23/20 15:30 81 18 148/83 96 05/23/20 15:15 87 16 163/94 92 L 05/23/20 15:09 98.1 F 96 16 185/97 100 05/23/20 13:45 75 148/80 97 05/23/20 13:25 81 16 155/92 93 L 05/23/20 12:03 98.0 F 84 16 163/98 94 L Intake and Output 05/23/20 05/24/20 05/24/20 22:59 06:59 14:59 Intake Total 100 Output Total 275 320 Balance -175 -320 Intake: IV 100 Output: Chest Tube Drainage 25 70 Chest Tube Left 25 70 Urine 250 250 Other: # Voids 2 1 Weight 124.5 kg Results CBC & Chem 7: 05/24/20 06:48 05/24/20 06:48 Labs: Abnormal Lab Results - Last 24 Hours (Table) 05/23/20 05/23/20 05/23/20 Range/Units 12:09 13:50 15:13 Sodium (137-145) mmol/L BUN (9-20) mg/dL Glucose (74-99) mg/dL POC Glucose (mg/dL) 325 H 306 H 301 H (75-99) mg/dL 05/23/20 05/23/20 05/24/20 Range/Units 17:52 20:41 06:48 Sodium 134 L (137-145) mmol/L BUN 8 L (9-20) mg/dL Glucose 291 H (74-99) mg/dL POC Glucose (mg/dL) 252 H 217 H (75-99) mg/dL 05/24/20 Range/Units 07:09 Sodium (137-145) mmol/L BUN (9-20) mg/dL Glucose (74-99) mg/dL POC Glucose (mg/dL) 263 H (75-99) mg/dL Microbiology - Last 24 Hours (Table) 05/23/20 14:41 Gram Stain - Preliminary Lung - Left Upper Lobe Wound Culture - Preliminary 05/23/20 14:41 Gram Stain - Preliminary Lung - Left Lower Lobe Tissue Culture - Preliminary 05/23/20 14:41 Fungal Culture - Preliminary Lung - Left Lower Lobe 05/23/20 14:41 Anaerobic Culture - Preliminary Lung - Left Lower Lobe 05/23/20 14:41 Fungal Culture - Preliminary Lung - Left Upper Lobe 05/23/20 14:41 Anaerobic Culture - Preliminary Lung - Left Upper Lobe
[2020-05-24 21:20] VITALS: TEMP 97.9
[2020-05-25] MEDS: traMADol 50 MG TAB PO PRN (03:22)
[2020-05-25] MEDS: ACETAMINOPHEN TAB 500 MG TAB PO PRN (03:22)
[2020-05-25 06:33] LABS: Glucose,Whole Blood 237 mg/dL (75-99)
[2020-05-25] MEDS: metFORMIN 500 MG TAB PO SCH (06:47)
[2020-05-25] MEDS: glipiZIDE 10 MG TAB PO SCH (06:48)
[2020-05-25] MEDS: PANTOPRAZOLE 40 MG TABLET PO SCH (06:48)
[2020-05-25] MEDS: INSULIN ASPART (NovoLOG) 100 UNIT/ML VIAL SQ SCH ×2 (06:49→12:50)
[2020-05-25] MEDS ORDERED: INSULIN DETEMIR (LEVEMIR) 100 UNIT/ML SYR SQ SCH (07:00)
--- NOTE | 2020-05-25 07:35 | XR ---
EXAMINATION TYPE: XR chest 2V DATE OF EXAM: 05/25/2020 COMPARISON: 05/24/2020 TECHNIQUE: PA and lateral views submitted. HISTORY: Post surgery) FINDINGS: Heart size is stable and there is hyperinflation. Reason of subsegmental areas of consolidation again noted. Chest tube is been removed. No sizable pne umothorax. No overt failure. No definite pleural effusion. Hypertrophic and degenerative change spine . Trace pneumomediastinum likely postoperative in the lateral view not excluded. IMPRESSION: 1. Chest tube removal with no sizable pneumothorax. Trace amount of pneumomediastinum not excluded. 2. Stable bilateral lower lobe infiltrate.
[2020-05-25 08:15] LABS: HCT 44.9 % (39.0-53.0); HGB 14.5 gm/dL (13.0-17.5); MCH 31.3 pg (25.0-35.0); MCHC 32.2 g/dL (31.0-37.0); MCV 97.3 fL (80.0-100.0); Mean Platelet Volume 8.7; Platelet Count 210 k/uL (150-450); RBC 4.62 m/uL (4.30-5.90); RDW 13.3 % (11.5-15.5)
[2020-05-25] MEDS: HEPARIN SODIUM,PORCINE 5,000 UNIT/ML 1 ML VIAL SQ SCH (08:20)
[2020-05-25] MEDS: amLODIPine 10 MG TAB PO SCH (08:21)
[2020-05-25] MEDS: SENNOSIDES 8.6 MG TAB PO SCH (08:21)
[2020-05-25] MEDS: ASPIRIN 81 MG PO SCH (08:21)
[2020-05-25] MEDS: ATORVASTATIN 20 MG TAB PO SCH (08:21)
[2020-05-25] MEDS: lisinopriL 20 MG TAB PO SCH (08:21)
[2020-05-25 08:23] LABS: Calcium 8.3 mg/dL (8.4-10.2); Potassium 3.7 mmol/L (3.5-5.1)
[2020-05-25 08:26] VITALS: RESP 16
[2020-05-25] MEDS: IPRATROPIUM-ALBUTEROL 3 ML NEB IH SCH ×2 (08:53→10:57)
--- NOTE | 2020-05-25 09:34 | P.PN ---
Subjective Progress Note Date: 05/25/20 Principal diagnosis: Bilateral interstitial disease, bilateral pulmonary nodularity. Previous medical history of hypertension, hyperlipidemia, uncontrolled type 2 diabetes with hyperglycemia with hemoglobin A1c 12.2%, previous tobacco dependence, perforated ulcer, right renal mass status post partial nephrectomy in 2017, obesity, and noncompliance with treatment recommendations. POD #2 left thoracoscopic lung biopsy The patient was sitting up in a recliner in no acute distress this morning, he does complain of pain to his chest tube site but states that is better since c hest tube removal yesterday. Remains in sinus rhythm. Blood sugars remain uncontrolled in the 200s, Levemir increased yesterday by Dr. Gil. Patient has been ambulatory in the hallway without difficulty. Was weaned down to room air with oxygen saturation 92%, however this morning his oxygenation is back down to 87% on room air. States he feels ready to go home today. Objective - Vital Signs Vital signs: Vital Signs Temp 97.9 F 05/25/20 03:20 Pulse 92 05/25/20 08:00 Resp 16 05/25/20 08:00 BP 152/86 05/25/20 08:00 Pulse Ox 87 L 05/25/20 08:00 Intake & Output 05/24/20 05/25/20 05/25/20 18:59 06:59 18:59 Intake Total 705 Output Total 400 Balance 705 -400 Weight 124.5 kg 122.7 kg Intake: Oral 705 Output: Urine 400 - Constitutional General appearance: Present: cooperative, no acute distress, obese - Respiratory Details: Lungs sounds diminished bilaterally. Respirations even, nonlabored. Currently on room air with oxygen saturation 87%. He was able to achieve 2000 mL on his incentive spirometry this morning. - Cardiovascular Details: S1, S2 present. Regular rate and rhythm, sinus rhythm on telemetry. Palpable peripheral pulses bilaterally. No edema present. No calf pain or tenderness noted. - Gastrointestinal Gastrointestinal Comment(s): Abdomen soft, nontender, slightly distended. Active bowel sounds present 4 quadrants. Tolerating diet. - Genitourinary Genitourinary Comment(s): Continues to void - Integumentary Integumentary Comment(s): Skin is warm and dry with evidence of good perfusion - Neurologic Neurologic: Present: CNII-XII intact - Musculoskeletal Musculoskeletal: Present: gait normal, strength equal bilaterally - Psychiatric Psychiatric: Present: A&O x's 3, appropriate affect, intact judgment & insight - Allied health notes Allied health notes reviewed: nursing - Labs CBC & Chem 7: 05/25/20 07:45 05/25/20 07:45 Labs: Abnormal Lab Results - Last 24 Hours (Table) 05/24/20 05/24/20 05/24/20 Range/Units 06:48 12:06 16:52 Sodium (137-145) mmol/L Glucose (74-99) mg/dL POC Glucose (mg/dL) 289 H 305 H (75-99) mg/dL Hemoglobin A1c 12.2 H (4.0-6.0) % Calcium (8.4-10.2) mg/dL 05/24/20 05/25/20 05/25/20 Range/Units 19:52 06:23 07:45 Sodium 136 L (137-145) mmol/L Glucose 256 H (74-99) mg/dL POC Glucose (mg/dL) 295 H 237 H (75-99) mg/dL Hemoglobin A1c (4.0-6.0) % Calcium 8.3 L (8.4-10.2) mg/dL Microbiology - Last 24 Hours (Table) 05/23/20 14:41 Gram Stain - Preliminary Lung - Left Lower Lobe Tissue Culture - Preliminary 05/23/20 14:41 Gram Stain - Preliminary Lung - Left Upper Lobe Wound Culture - Preliminary - Imaging and Cardiology Chest x-ray: report reviewed, image reviewed Assessment and Plan Assessment: 1. Bilateral interstitial disease, bilateral pulmonary nodularity, status post left thoracoscopic lung biopsy 2. Hypertension 3. Hyperlipidemia 4. Uncontrolled type 2 diabetes with hyperglycemia 5. Previous tobacco dependence 6. Perforated ulcer 7. Right renal mass status post partial nephrectomy in 2017 8. Obesity 9. Noncompliance with treatment recommendations 10. Hypoxemia requiring oxygen use Plan: 1. Repeat chest x-ray remained stable 2. Wean O2 as tolerated. Encourage incentive spirometry 10 times every hour while awake 3. Increase activity, ambulate in hallway 4. Pain control with current medication regimen 5. Diabetic management per Dr. Gil 6. Will discharge to home later today once diabetic regimen is discussed with Dr. Gil. Patient will need to be discharged on home oxygen as his saturation is only 87% on room air at rest. Will make follow-up appointments for Dr. Carl Dr. Armijo, and Dr. Hutchins Seen and examined and agree with above Time with Patient: Greater than 30
[2020-05-25 12:16] LABS: Glucose,Whole Blood 276 mg/dL (75-99)
[2020-05-25 12:54] VITALS: BP 132/86; PULSE 88
--- NOTE | 2020-05-25 13:10 | P.PN ---
Subjective Progress Note Date: 05/25/20 Principal diagnosis: Interstitial lung disease This is a very pleasant 64-year-old -[place] gentleman who follows with Dr. Armijo as his primary care provider. He has a history of hyperlipidemia, hypertension, diabetes mellitus, gastroesophageal reflux disease, obstructive sleep apnea, diabetic peripheral neuropathy, history of malignant neoplasm of the kidney. He is also been seen in our office by Dr. Hutchins for complaints of dyspnea on exertion. Former smoker of approximately 30 years. FEV1 value 79% of predicted. 6 minute walk revealed a desaturation to 90%. Chest x-ray reveals evidence of nonspecific interstitial pneumonia. There was concern regarding interstitial lung disease/pulmonary fibrosis. He was referred to Dr. Carl for a VATS lung biopsy. He was admitted here yesterday and electively he had undergone left thoracoscopic lung biopsy. Pathology is pending. He is seen today in consultation on the selective care unit. He is resting comfortably in bed. Left-sided chest tube remains in place to waterseal. No leak detected. He is pulling approximately 1500 ML's on the incentive spirometer. Currently on 2 L/m per nasal cannula. He had been having some issues with increased abdominal distention and nausea and vomiting. No recent bowel movement. He'll be receiving Senokot today. White count 7.4. Hemoglobin 15.8. Sodium 134. Potassium 4.0. Creatinine 0.98. He received 2 doses of cefazolin. Remains on bronchodilators. Heparin for DVT prophylaxis. The patient is seen today 05/25/2020 in follow-up on the selective care unit. He is currently sitting up in a chair at the bedside. Awake and alert in no acute distress. His left-sided chest tube has been removed. Follow-up chest x- ray revealed no evidence of pneumothorax. Trace pneumomediastinum not excluded. Stable bilateral infiltrates. The patient desaturated to 87% on room air. He is working with the incentive spirometer. Lung biopsies pending. White count 7.0. Hemoglobin 14.5. Sodium 136. Potassium 3.7. Creatinine 1.08. Glucose 256. Objective - Vital Signs Vital signs: Vital Signs Temp 97.9 F 05/25/20 03:20 Pulse 88 05/25/20 12:00 Resp 16 05/25/20 12:00 BP 132/86 05/25/20 12:00 Pulse Ox 92 L 05/25/20 12:00 Intake & Output 05/24/20 05/25/20 05/25/20 18:59 06:59 18:59 Intake Total 705 120 Output Total 400 Balance 705 -400 120 Weight 124.5 kg 122.7 kg Intake: Oral 705 120 Output: Urine 400 - Exam GENERAL EXAM: Alert, active, very pleasant -[place] 64-year-old gentl eman, on 2 L nasal cannula, comfortable in no apparent distress. HEAD: Normocephalic. EYES: Normal reaction of pupils, equal size. NOSE: Clear with pink turbinates. THROAT: No erythema or exudates. NECK: No masses, no JVD. CHEST: No chest wall deformity. Left-sided chest tube secured in place, to w aterseal, no leak. LUNGS: Equal air entry with crackles in the left lung base. CVS: S1 and S2 normal with no audible murmur, regular rhythm. ABDOMEN: No hepatosplenomegaly, normal bowel sounds, no guarding or rigidity. SPINE: No scoliosis or deformity SKIN: No rashes CENTRAL NERVOUS SYSTEM: No focal deficits, tone is normal in all 4 extremities. EXTREMITIES: There is no peripheral edema. No clubbing, no cyanosis. Peripheral pulses are intact. - Labs CBC & Chem 7: 05/25/20 07:45 05/25/20 07:45 Labs: Abnormal Lab Results - Last 24 Hours (Table) 05/24/20 05/24/20 05/24/20 Range/Units 06:48 16:52 19:52 Sodium (137-145) mmol/L Glucose (74-99) mg/dL POC Glucose (mg/dL) 305 H 295 H (75-99) mg/dL Hemoglobin A1c 12.2 H (4.0-6.0) % Calcium (8.4-10.2) mg/dL 05/25/20 05/25/20 05/25/20 Range/Units 06:23 07:45 12:14 Sodium 136 L (137-145) mmol/L Glucose 256 H (74-99) mg/dL POC Glucose (mg/dL) 237 H 276 H (75-99) mg/dL Hemoglobin A1c (4.0-6.0) % Calcium 8.3 L (8.4-10.2) mg/dL Microbiology - Last 24 Hours (Table) 05/23/20 14:41 Gram Stain - Preliminary Lung - Left Lower Lobe Tissue Culture - Preliminary 05/23/20 14:41 Gram Stain - Preliminary Lung - Left Upper Lobe Wound Culture - Preliminary Assessment and Plan Assessment: 1 Dyspnea and the patient is suspected of having interstitial lung disease/pulmonary fibrosis. Status post left-sided VATS procedure with biopsy. Left chest tube removed. Pathology pending. 2 Remote history of 30 years of chronic tobacco dependence 3 obstructive sleep apnea 4 Diabetes mellitus 5 Diabetic peripheral neuropathy 6 Renal cell carcinoma status post right nephrectomy 7 Obesity 8 Hyperlipidemia Plan: The patient was seen and evaluated by Dr. Hutchins Chest x-ray and labs reviewed Continue bronchodilators Continue incentive spirometer May require home oxygen He will follow up with Dr. Hutchins in our office one week post discharge I, the cosigning physician, performed a history & physical examination of the patient. Lungs sounds with crackles in the left base. Maintaining good O2 saturations in the 90s on 2 L/m per nasal cannula. I discussed the assessment and plan of care with my nurse practitioner, Michelle Burnham. I attest to the above note as dictated by her.
--- NOTE | 2020-05-25 13:27 | P.DS ---
Providers Date of admission: 05/23/20 11:39 Expected date of discharge: 05/25/20 Attending physician: Sunny Carl Consults: 05/23/20 16:24 Consult Physician Routine Consulting Provider: Marleni Hutchins Consult Reason/Comments: pulm mgmt Do you want consulting provider notified?: Yes Consult Physician Routine Consulting Provider: Sherman Gil Consult Reason/Comments: med mgmt; borgeil patient Do you want consulting provider notified?: Yes Primary care physician: Gabe Armijo [facility] Course: FINAL DIAGNOSIS: 1. Bilateral interstitial disease, bilateral pulmonary nodularity 2. Hypertension 3. Hyperlipidemia 4. Uncontrolled type 2 diabetes with hyperglycemia and hemoglobin A1c 12.2% 5. Previous tobacco dependence 6. History of perforated ulcer 7. Right renal mass status post partial nephrectomy in 2017 8. Obesity 9. Noncompliance with treatment recommendations 10. Hypoxemia requiring oxygen use PRINCIPAL PROCEDURE: 1. Left thoracoscopic lung biopsy HISTORY OF PRESENT ILLNESS: This is a 64-year-old gentleman who follows on an outpatient basis with Dr. Armijo. He presented with a 6 month history of worsening dyspnea. He had workup in October 2019 which included computed tomography scan which demonstrated bibasal lower lobe pulmonary nodularity as well as interstitial changes consistent with pulmonary fibrosis. There was interstitial bullous disease of the upper lobes as well as middle and lower lobes consistent with emphysema. The patient was referred to Dr. Carl from cardiothoracic surgery for lung biopsy which he was recommended to undergo thoracoscopicly. The usual perioperative course was discussed in detail with the patient and his family, all risks and benefits were explained, all questions were answered, and consent was obtained to proceed with surgery. The patient was scheduled for surgery at the earliest possible date. HOSPITAL COURSE: The patient was brought to the hospital on 05/23/2020, taken to the preoperative area, prepared in the usual fashion, and subsequently taken to the operating room where Dr. Carl performed a left thoracoscopic lung biopsy. Upon completion of surgery the patient was extubated and eventually admitted to 3 S. cardiac stepdown unit. He had no air leak in his chest tube the night of surgery which was then placed to [facility]. On postop day #1 his chest x-ray revealed no pneumothorax with good expansion of the lung, there was no air leak and his chest tube and his chest tube was discontinued without incident. Attempts were made to wean the patient off oxygen, however he continued to require oxygen as his saturations were 87% on room air. In addition he continued to have elevated blood sugars, and received medication adjustments per primary care service. He was tolerating oral diet, his pain was controlled, and he was ready to be discharged to home on postoperative day #2. He received written and verbal instruction regarding his medications, activity restrictions, signs and symptoms requiring physician notification, and follow-up appointments. He was also instructed to check his blood sugars before each meal and at bedtime and bring a log of his blood sugars to his primary care follow-up. COMPLICATIONS: The patient experienced no postoperative complications. Patient Condition at Discharge: Stable Plan - Discharge Summary Discharge Rx Participant: Yes New Discharge Prescriptions: New Sennosides [Senokot] 8.6 mg PO BID PRN tab PRN Reason: Constipation Acetaminophen Tab [Tylenol] 1,000 mg PO Q6HR PRN tab PRN Reason: Fever and/ or Mild Pain traMADol HCl [Ultram] 50 mg PO Q6HR PRN #12 tab PRN Reason: Moderate To Severe Pain Continue Atorvastatin [Lipitor] 20 mg PO QAM Omeprazole 40 mg PO QAM Famotidine 20 mg PO DAILY PRN PRN Reason: Heartburn glyBURIDE/METFORMIN HCL [Glucovance 2.5-500 mg] 2 tab PO BID amLODIPine BESYLATE/BENAZEPRIL [Lotrel 10-20 MG] 1 cap PO DAILY Aspirin [Adult Low Dose Aspirin EC] 81 mg PO DAILY Albuterol Inhaler [Ventolin Hfa Inhaler] 1 puff INHALATION DIRECTED PRN PRN Reason: sob Changed Insulin Glargine [Lantus] 26 unit SQ QAM #0 Discharge Medication List Atorvastatin [Lipitor] 20 mg PO QAM 10/29/16 [History] Omeprazole 40 mg PO QAM 11/23/16 [History] Famotidine 20 mg PO DAILY PRN 04/05/19 [History] glyBURIDE/METFORMIN HCL [Glucovance 2.5-500 mg] 2 tab PO BID 04/05/19 [History] Albuterol Inhaler [Ventolin Hfa Inhaler] 1 puff INHALATION DIRECTED PRN 04/08/20 [History] Aspirin [Adult Low Dose Aspirin EC] 81 mg PO DAILY 04/08/20 [History] amLODIPine BESYLATE/BENAZEPRIL [Lotrel 10-20 MG] 1 cap PO DAILY 04/08/20 [History] Acetaminophen Tab [Tylenol] 1,000 mg PO Q6HR PRN tab 05/25/20 [Rx] Insulin Glargine [Lantus] 26 unit SQ QAM #0 05/25/20 [Rx] Sennosides [Senokot] 8.6 mg PO BID PRN tab 05/25/20 [Rx] traMADol HCl [Ultram] 50 mg PO Q6HR PRN #12 tab 05/25/20 [Rx] Follow up Appointment(s)/Referral(s): Marleni Hutchins MD [STAFF PHYSICIAN] - 1 Week (Will call patient on Wednesday with appointment date and time) Benjamin Armijo MD [Primary Care Provider] - 1 Week (Will call patient on Wednesday with appointment date and time) [employer] [facility] [NON-STAFF] - As Needed (oxygen ) Sunny Carl MD [STAFF PHYSICIAN] - 1 Week (Will call patient on Wednesday with appointment date and time) Activity/Diet/Wound Care/Special Instructions: DISCHARGE INSTRUCTIONS: 1. No driving for 2 weeks, or until physician gives their ok. 2. No lifting, pushing, or pulling more than 10 pounds for 2 weeks. The physician will advise of any restriction changes. 3. Continue pain control per as needed orders. Alternate acetaminophen (Tylenol) and ibuprofen (Motrin/Advil) for pain. 4. Continue with incentive spirometry and splinting until otherwise directed by the physician. 5. Leave chest tube dressing for 48 hours. After that, remove all dressings and shower daily. 6. Routine incision care. No powders, lotions, ointments on incisions. 7. Please call surgeon/TRAY CASTING MACHINE OPERATOR for temp greater than 101 F or purulent drainage from incisions. 8. Please check blood sugars before each meal and at bedtime, keep a log of all blood sugars and bring with you to follow-up appointment with Dr. Armijo Discharge Disposition: HOME SELF-CARE
--- NOTE | 2020-05-25 22:55 | P.PN ---
Progress Note - Text Progress Note Date: 05/25/20 - Chief Complaint Left lung biopsy Consultation: This is a 64-year-old patient follows with Dr. Armijo. Chronic stable medical conditions include GERD, hyperlipidemia, hypertension, peripheral neuropathy, right kidney cancer r. Patient had exertional dyspnea. Found to have bilateral interstitial lung disease. Lung biopsy was requested by Dr. Hutchins. Patient has undergone left thoracoscopic lung biopsy. Has a left-sided chest tube in place. Some local chest pain. Baseline some shortness of breath. Accu-Cheks and been running high. Laying in bed. Today-sitting up in chair. Feeling better. Dose of Levemir increased to 26 units for going home. Discussed with the patient. Central documented with Accu-Cheks. Follow his family doctor. Breathing better. Review of systems: Was done for constitutional, cardiovascular, GI, pulmonary. relevant finding as above Current medications reviewed in today's electronic records Physical examination: VITAL SIGNS: Afebrile, 88, 16, 132/86, 92% on 2 L GENERAL: Sitting upon chair, comfortable EYES: Pupils equal. Conjunctiva normal. NECK: JVD unable to assess; masses not palpable. HEART: First and second heart sounds are normal; no edema. LUNGS: Respiratory rate increased decreased breath sounds, ABDOMEN: Soft, nontender, liver spleen not palpable, no masses palpable. PSYCH: Alert and oriented x3; mood and affect normal. INVESTIGATIONS, reviewed in the clinical context: White count 7 hemoglobin 14.5 potassium 3.7 creatinine 1.08 Accu-Cheks 276 Previous testing White count 7.4 hemoglobin 15.8 platelets 215 potassium 4 creatinine 0.98 blood glucose 291 HbA1c 12.2 Chest x-ray film personally reviewed by me-scattered interstitial changes Assessment: -Status post left lung biopsy for interstitial lung disease, with a left-sided chest tube -Bilateral interstitial lung disease/pulmonary fibrosis- -Obesity BMI 36.2 -Diabetes mellitus type 2, uncontrolled with hyperglycemia. -GERD -Hyperlipidemia -Essential hypertension - Plan: Levemir increased to 26 units in the morning. Follow Accu-Cheks. Other medications to continue. Follow-up with his PCP. Thank you Dr. Carl
== END 2020-05-25 15:52 | disposition home or self-care (01) | DRG 168 ==
LOC: 2ORMAIN 11:39 → 3SCARD 15:44
PROVIDERS: ADMIT Thoracic Surgery (Cardiothoracic Vascular Surgery); ATTEND Thoracic Surgery (Cardiothoracic Vascular Surgery)
PROC: 0BB84ZX Excision of Left Upper Lobe Bronchus, Percutaneous Endoscopic Approach, Diagnostic (ICD-10-PCS; principal; 2020-05-23 13:50)
PROC: 0BBJ4ZX Excision of Left Lower Lung Lobe, Percutaneous Endoscopic Approach, Diagnostic (ICD-10-PCS; principal; 2020-05-23 13:50)
DX: J84.9 Interstitial pulmonary disease, unspecified (principal); J84.10 Pulmonary fibrosis, unspecified; E11.42 Type 2 diabetes mellitus with diabetic polyneuropathy; E11.65 Type 2 diabetes mellitus with hyperglycemia; J43.9 Emphysema, unspecified; Z79.4 Long term (current) use of insulin; R09.02 Hypoxemia; E78.5 Hyperlipidemia, unspecified; G47.33 Obstructive sleep apnea (adult) (pediatric); I10 Essential (primary) hypertension; K21.9 Gastro-esophageal reflux disease without esophagitis; E66.9 Obesity, unspecified; Z68.36 Body mass index [BMI] 36.0-36.9, adult; Z91.19 Patient's noncompliance with other medical treatment and regimen; Z79.82 Long term (current) use of aspirin; Z79.899 Other long term (current) drug therapy; Z87.891 Personal history of nicotine dependence; Z85.528 Personal history of other malignant neoplasm of kidney; Z90.5 Acquired absence of kidney; Z87.11 Personal history of peptic ulcer disease; Z87.2 Personal history of diseases of the skin and subcutaneous tissue; Z86.19 Personal history of other infectious and parasitic diseases; Z98.890 Other specified postprocedural states; Z82.49 Family history of ischemic heart disease and other diseases of the circulatory system; Z83.3 Family history of diabetes mellitus
CPT/HCPCS: 71045; 71046; 80048; 83036; 85025; 85027; 87070; 87075; 87102; 87205; 88307; 88312; 94640

== ENCOUNTER → 2020-06-10 | Outpatient (CLI) | payer BC ==
[2020-06-10 09:53] LABS: Basophils # (A) 0.1 k/uL (0-0.2); Basophils % (A) 1 %; Eosinophils # (A) 0.4 k/uL (0-0.7); Eosinophils % (A) 5 %; HCT 47.5 % (39.0-53.0); HGB 15.3 gm/dL (13.0-17.5); Lymphocytes # (A) 2.5 k/uL (1.0-4.8); Lymphocytes % (A) 32 %; MCH 30.8 pg (25.0-35.0); MCHC 32.2 g/dL (31.0-37.0); MCV 95.7 fL (80.0-100.0); Mean Platelet Volume 8.2; Monocytes # (A) 0.4 k/uL (0-1.0); Monocytes % (A) 6 %; Neutrophils # (A) 4.3 k/uL (1.3-7.7); Neutrophils % (A) 55 %; Platelet Count 281 k/uL (150-450); RBC 4.97 m/uL (4.30-5.90); WBC 7.8 k/uL (3.8-10.6)
[2020-06-10 14:37] LABS: African American GFR (CKD) 67.8 (60.0-200.0); Albumin 4.6 g/dL (3.80-4.90); Albumin/Globulin Ratio 1.35 (1.60-3.17); Anion Gap 10.8 mmol/L (4.00-12.00); BUN/Creat Ratio 9.23 Ratio (12.00-20.00); Calcium 9.5 mg/dL (8.7-10.3); Carbon Dioxide 27.2 mmol/L (21.6-31.8); Globulin 3.4 g/dL (1.6-3.3); Non-African American GFR(CKD) 58.5 (60.0-200.0); Potassium 4.1 mmol/L (3.5-5.5); Total Bilirubin 0.6 mg/dL (0.3-1.2)
[2020-06-10 15:18] LABS: Cyclic Citrull Pep IgG Unit <0.5 U/mL; Cyclic Citrullinated Pep IgG NEGATIVE (NEGATIVE)
[2020-06-10 15:38] LABS: Cat Epith & Dander IgE <0.10 kU/L; Dermato. farinae IgE 1.02 kU/L
[2020-06-10 15:39] LABS: Cladosporian herbarum IgE <0.10 kU/L; Cockroach IgE 0.44 kU/L; Dog Dander IgE <0.10 kU/L
[2020-06-10 15:40] LABS: Alternaria alternata IgE <0.10 kU/L; Aspergillus fumagatus IgE <0.10 kU/L; Maple (Box Elder) IgE <0.10 kU/L
[2020-06-10 15:41] LABS: Birch IgE <0.10 kU/L; Elm IgE <0.10 kU/L; Oak IgE <0.10 kU/L
[2020-06-10 15:42] LABS: Ragweed,Common IgE <0.10 kU/L; Red Top (Bentgrass) IgE <0.10 kU/L
[2020-06-10 16:49] LABS: Erythrocyte Sedimentation Rate 26 mm/Hr (0-20)
[2020-06-15 17:58] LABS: Alternaria Alternata IgG 2.5 mcg/mL (< 13.6); Aspergillus fumigatus IgG Not detected (Not detected); Aureobasidium pullulans IgG 6.1 mcg/mL (< 13.6); Cladosporium herbarium IgG 8.7 mcg/mL (< 14.7); Phoma ssp. IgG 2.1 mcg/mL (< 6.6); Saccaharomospora viridis Not detected (Not detected); Saccaharopoly. rectivirgula Not detected (Not detected)
== END | disposition home or self-care (01) ==
LOC: LABWHC1 08:18
PROVIDERS: ATTEND Internal Medicine
DX: J67.9 Hypersensitivity pneumonitis due to unspecified organic dust (principal)
CPT/HCPCS: 36415; 80053; 82164; 82785; 85025; 85652; 86001; 86003; 86038; 86200; 86235; 86431; 86606; 86609

== ENCOUNTER 2020-09-14 10:51 | Emergency (ER) | payer BC ==
--- NOTE | 2020-09-14 11:23 | ED ---
Lower Extremity Injury HPI - General Chief Complaint: Extremity Injury, Lower Stated Complaint: Fall, L Leg Injury Time Seen by Provider: 09/14/20 11:02 Source: patient Mode of arrival: ambulatory Limitations: no limitations - History of Present Illness Initial Comments: Patient is a 64-year-old male presenting to the emergency Department with complaints of left lower leg pain after a fall 2 days ago. Patient states he missed the last step on his stairs and fell down twisting his left ankle. Patient is complaining of pain in the medial aspect of his left foot, the lateral part of his left ankle as well as the lateral part of his lower leg. He denies any previous surgeries or injuries to this area. He has been wearing a brace on his left ankle, he states it does help to walk around with this on. He denies hitting his head, he denies any other injuries from this fall. He has no further complaints. - Related Data Home Medications Medication Instructions Recorded Confirmed Omeprazole 40 mg PO QAM 11/23/16 05/22/20 glyBURIDE/METFORMIN HCL 2 tab PO BID 04/05/19 05/22/20 [Glucovance 2.5-500 mg] INSULIN LISPRO (humaLOG) [humaLOG] See Protocol SQ DAILY PRN 09/14/20 09/14/20 Insulin Glargine [Lantus] 20 unit SQ QAM 09/14/20 09/14/20 Allergies Allergy/AdvReac Type Severity Reaction Status Date / Time No Known Allergies Allergy Verified 09/14/20 12:07 Review of Systems ROS Statement: Those systems with pertinent positive or pertinent negative responses have been documented in the HPI. ROS Other: All systems not noted in ROS Statement are negative. Past Medical History Past Medical History: Cancer, Diabetes Mellitus, GERD/Reflux, Hyperlipidemia, Hypertension, Skin Disorder Additional Past Medical History / Comment(s): pain sides of abdomen,neuropathy, skin disorder frequent skin boils,rt kidney CA History of Any Multi-Drug Resistant Organisms: None Reported Additional Past Surgical History / Comment(s): repair perforated ulcer, I&D boil buttocks,partial rt kidney removed, biopsey of left lung Past Anesthesia/Blood Transfusion Reactions: No Reported Reaction Past Psychological History: No Psychological Hx Reported Smoking Status: Former smoker Past Alcohol Use History: Occasional - Past Family History Mother Family Medical History: No Reported History Additional Family Medical History / Comment(s): The patient's mother had hypertension, sister with diabetes mellitus General Exam - General Exam Comments Initial Comments: GENERAL: Patient is well-developed and well-nourished. Patient is nontoxic and in no acute distress. HEAD: Atraumatic, normocephalic. EYES: Pupils equal round and reactive to light, extraocular movements intact, sclera anicteric, conjunctiva are normal. Eyelids were unremarkable. ENT: TMs normal, nares patent, oropharynx clear without exudates. Moist mucous membranes. NECK: Normal range of motion, supple without lymphadenopathy or JVD. LUNGS: Unlabored respirations. Breath sounds clear to auscultation bilaterally and equal. No wheezes rales or rhonchi. HEART: Regular rate and rhythm without murmurs, rubs or gallops. ABDOMEN: Soft, nontender, normoactive bowel sounds. No guarding, no rebound. No masses appreciated. : Deferred MUSCULOSKELETAL: Patient has some pain with palpation of the medial left foot, lateral left ankle as well as the lateral aspect of the lower leg. There is no obvious deformity, no significant swelling. He does have full range of motion of the left ankle and left knee. He is neurovascular intact. No clubbing or cyanosis. NEUROLOGICAL: Patient is alert and oriented x 3. Motor and sensory are also intact. Cranial nerves II through XII grossly intact. Symmetrical smile. Normal speech, normal gait. PSYCH: Normal mood, normal affect. SKIN: Warm, Dry, normal turgor, no rashes or lesions noted. Limitations: no limitations Course Vital Signs 09/14/20 10:57 Temperature 99.0 F Pulse Rate 100 Respiratory 18 Rate Blood Pressure 172/128 O2 Sat by Pulse 92 L Oximetry Procedures - Orthopedic Splinting/Casting Injury #1 Side: left Lower Extremity Injury Location: long leg Lower Extremity Immobilizer: knee immobilizer Medical Decision Making - Medical Decision Making Patient is 64-year-old male here for left foot and ankle pain after he fell 2 days ago. There were no other injuries in this fall. No obvious deformity or swelling of these joints. Excise of the left foot and ankle revealed no acute fractures. X-rays of the tib-fib reveals a fracture in the fibular neck. Patient will be placed in a knee immobilizer and will follow up with orthopedics. Patient is stable for discharge. Patient is in agreement with this plan of care. Return parameters were discussed with the patient and they verbalized understanding. Case discussed with Dr. Cat. Disposition Clinical Impression: Fracture of neck of left fibula, Left ankle sprain Disposition: HOME SELF-CARE Condition: Stable Instructions (If sedation given, give patient instructions): Leg Fracture (ED) Additional Instructions: Please return to the Emergency Department if symptoms worsen or any other concerns. Please keep knee immobilizer in place until follow-up with orthopedics as discussed. May apply ice to the area, Tylenol or Motrin for any discomfort. Is patient prescribed a controlled substance at d/c from ED?: No Referrals: Benjamin Armijo MD [Primary Care Provider] - 1-2 days Brennan Lund MD [STAFF PHYSICIAN] - 1-2 days
--- NOTE | 2020-09-14 11:44 | XR ---
EXAMINATION TYPE: XR foot complete LT DATE OF EXAM: 09/14/2020 CLINICAL HISTORY: pain TECHNIQUE: Frontal, lateral and oblique images of the left foot are obtained. COMPARISON: None. FINDINGS: There is no acute fracture/dislocation evident. The joint spaces appear within normal smith its. The overlying soft tissue appears unremarkable. IMPRESSION: There is no acute fracture or dislocation. ICD 10 NO FRACTURE, INITIAL EVALUATION
--- NOTE | 2020-09-14 11:47 | XR ---
EXAMINATION TYPE: XR tibia fibula LT DATE OF EXAM: 09/14/2020 CLINICAL HISTORY: pain TECHNIQUE: AP and lateral images of the left tibia and fibula are obtained. COMPARISON: None. FINDINGS: There is a fracture in the region of the fibular neck. No additional fractures identified a t this time. Vascular calcifications noted. IMPRESSION: Fibular neck fracture identified. ICD 10 FRACTURE, INITIAL EVALUATION
--- NOTE | 2020-09-14 11:52 | XR ---
Left ankle. HISTORY: Pain following trauma. COMPARISON: None. TECHNIQUE: 4 views of the left ankle were obtained. FINDINGS: There is no fracture, dislocation, intraosseous or intra-articular abnormality. There is no radiopaqu e foreign body. There is vascular calcification involving the posterior and anterior tibial arteries. IMPRESSION: No acute abnormality.
[2020-09-14 12:29] VITALS: BP 178/98; PULSE 97; RESP 20; TEMP 98.9
== END 2020-09-14 12:29 | disposition home or self-care (01) ==
LOC: EC 10:51
DX: S82.402A Unspecified fracture of shaft of left fibula, initial encounter for closed fracture (principal); S93.402A Sprain of unspecified ligament of left ankle, initial encounter; E11.9 Type 2 diabetes mellitus without complications; K21.9 Gastro-esophageal reflux disease without esophagitis; Z79.4 Long term (current) use of insulin; Z79.899 Other long term (current) drug therapy; Z87.891 Personal history of nicotine dependence; Z85.528 Personal history of other malignant neoplasm of kidney; W10.9XXA Fall (on) (from) unspecified stairs and steps, initial encounter
CPT/HCPCS: 73590; 73610; 73630; 99283; 29505; L1830

== ENCOUNTER 2021-02-11 10:42 | Emergency (ER) | payer BC ==
[2021-02-11 10:51] VITALS: BP 125/77; PULSE 104; RESP 18; TEMP 97.7
[2021-02-11] MEDS ORDERED: HYDROcodone/APAP 7.5-325MG 1 EACH TAB PO ONE (10:59)
--- NOTE | 2021-02-11 11:02 | ED ---
General Adult HPI - General Chief complaint: Extremity Problem,Nontraumatic Stated complaint: shoulder pain Time Seen by Provider: 02/11/21 10:54 Source: patient Mode of arrival: wheelchair Limitations: physical limitation - History of Present Illness Initial comments: Dictation was produced using [employer] dictation software. please excuse any gramma tical, word or spelling errors. Chief Complaint: 65-year-old male presents with right shoulder pain History of Present Illness: Is a 65-year-old -[place] male presents to the right shoulder pain. Patient's pain began 2 days ago. Denies any trauma to the shoulder. He has no known history of arthritis of the shoulder. Patient has not had any shoulder issues until now. The ROS documented in this emergency department record has been reviewed and confirmed by me. Those systems with pertinent positive or negative responses have been documented in the HPI. All other systems are other negative and/or noncontributory. PHYSICAL EXAM: General Impression: Alert and oriented x3, not in acute distress HEENT: Normocephalic atraumatic, extra-ocular movements intact, pupils equal and reactive to light bilaterally, mucous membranes moist. Cardiovascular: Heart regular rate and rhythm Chest: Able to complete full sentences, no retractions, no tachypnea Abdomen: abdomen soft, non-tender, non-distended, no organomegaly Musculoskeletal: Pulses present and equal in all extremities, no peripheral edema Right shoulder: Limited active abduction, passive range of motion some tach. Pain is elicited with external rotation and abduction. Motor: no focal deficits noted Neurological: CN II-XII grossly intact, no focal motor or sensory deficits noted Skin: Intact with no visualized rashes Psych: Normal affect and mood ED course: 65-year-old male presents to [facility] department for atraumatic right shoulder pain. Vital signs upon arrival are within acceptable limits. X-ray shows impingement syndrome versus calcific tendinitis. Patient discharged with referral to orthopedic surgery. - Related Data Home Medications Medication Instructions Recorded Confirmed Omeprazole 40 mg PO DAILY 11/23/16 02/11/21 glyBURIDE/METFORMIN HCL 2 tab PO BID 04/05/19 02/11/21 [Glucovance 2.5-500 mg] Albuterol Inhaler [Ventolin Hfa 2 puff INHALATION RT-QID PRN 02/11/21 02/11/21 Inhaler] Aspirin EC [Ecotrin Low Dose] 81 mg PO DAILY 02/11/21 02/11/21 Furosemide [Lasix] 20 mg PO DAILY 02/11/21 02/11/21 Insulin Glargine,Hum.rec.anlog 30 unit SQ DAILY 02/11/21 02/11/21 [Lantus Solostar] Tamsulosin HCl [Flomax] 0.4 mg PO DAILY 02/11/21 02/11/21 amLODIPine BESYLATE/BENAZEPRIL 1 cap PO DAILY 02/11/21 02/11/21 [Lotrel 10-20 MG] predniSONE 30 mg PO Q48H 02/11/21 02/11/21 Allergies Allergy/AdvReac Type Severity Reaction Status Date / Time aspirin AdvReac patient Verified 02/11/21 11:50 takes at home, is unsure why this is listed Review of Systems ROS Statement: Those systems with pertinent positive or pertinent negative responses have been documented in the HPI. ROS Other: All systems not noted in ROS Statement are negative. Past Medical History Past Medical History: Cancer, Diabetes Mellitus, GERD/Reflux, Hyperlipidemia, Hypertension, Skin Disorder Additional Past Medical History / Comment(s): pain sides of abdomen,neuropathy, skin disorder frequent skin boils,rt kidney CA History of Any Multi-Drug Resistant Organisms: None Reported Additional Past Surgical History / Comment(s): repair perforated ulcer, I&D boil buttocks,partial rt kidney removed, biopsey of left lung Past Anesthesia/Blood Transfusion Reactions: No Reported Reaction Past Psychological History: No Psychological Hx Reported Smoking Status: Former smoker Past Alcohol Use History: Occasional Past Drug Use History: None Reported - Past Family History Mother Family Medical History: No Reported History Additional Family Medical History / Comment(s): The patient's mother had hypertension, sister with diabetes mellitus General Exam Limitations: physical limitation Course Vital Signs 02/11/21 10:49 Temperature 97.7 F Pulse Rate 104 H Respiratory 18 Rate Blood Pressure 125/77 O2 Sat by Pulse 98 Oximetry Disposition Clinical Impression: Shoulder pain Disposition: HOME SELF-CARE Condition: Good Instructions (If sedation given, give patient instructions): Calcific Tendinitis (ED) Is patient prescribed a controlled substance at d/c from ED?: No Referrals: Henrique Herron MD [STAFF PHYSICIAN] - 1-2 days
--- NOTE | 2021-02-11 12:36 | XR ---
Right shoulder HISTORY: Shoulder pain 3 views of the right shoulder, correlation to prior right shoulder dated 08/21/2016. There is a distal acromial spur. Bone mineralization, joint spaces and alignment are maintained. Smal l calcification present near the insertion of the rotator cuff on the lateral humerus. Right lung ape x as visualized is normal. No fracture or dislocation. Hypertrophic change present at the acromioclav icular joint. IMPRESSION: Correlate for impingement, calcific tendinitis. Shoulder MRI may be of benefit.
[2021-02-11] MEDS ORDERED: ACET/COD 300 MG/30 MG STARTER PACK 6 TAB BTL PO STA (13:07)
== END 2021-02-11 13:27 | disposition home or self-care (01) ==
LOC: EC 10:42
DX: M25.511 Pain in right shoulder (principal); I10 Essential (primary) hypertension; E78.5 Hyperlipidemia, unspecified; E11.40 Type 2 diabetes mellitus with diabetic neuropathy, unspecified; K21.9 Gastro-esophageal reflux disease without esophagitis; Z85.528 Personal history of other malignant neoplasm of kidney; Z87.891 Personal history of nicotine dependence; Z79.4 Long term (current) use of insulin; Z79.52 Long term (current) use of systemic steroids; Z79.82 Long term (current) use of aspirin; Z79.899 Other long term (current) drug therapy; Z88.6 Allergy status to analgesic agent
CPT/HCPCS: 99283

== ENCOUNTER → 2021-11-17 | Outpatient (CLI) | payer BC ==
--- NOTE | 2021-11-17 13:27 | CT ---
EXAMINATION TYPE: CT chest wo con DATE OF EXAM: 11/17/2021 INDICATION: Lung disease CT DLP: 1227.00 mGy.cm Automated Exposure Control for Dose Reduction was Utilized. TECHNIQUE AND CONTRAST: CT scan of the chest without IV contrast administration performed in the axial and prone positions as per high-resolution CT scan protocol. COMPARISON: CT dated 04/08/2020 FINDINGS: COPD changes mainly involving the upper lung lobes and predominantly centrilobular emphysematous garcia ges. Minimal bilateral basal peripheral pulmonary reticulations, subtle minimal groundglass opacities , dependent densities and subsegmental pulmonary atelectasis. Scattered pulmonary nodules most eviden t in the left lower lobe, suboptimally assessed by this CT scan. Follow-up routine CT scan should be considered to assess the lung nodules. No evidence of traction bronchiectasis, honeycombing or cystic changes. No rigoberto area of pulmonary consolidation. Patent trachea and main bronchi. No sizable pleural or frantz cardial effusion. No gross cardiomegaly. Coronary and arterial atherosclerotic calcifications. The pu lmonary trunk measures 3.6 cm suggestive of pulmonary hypertension. No pathologically enlarged lymph nodes in the chest by this CT scan. Suspected hepatic steatosis. Small pancreas. Small sliding hiatal hernia. Suspected left renal cyst, suboptimally assessed. Degenerative changes of the thoracic spine . IMPRESSION: COPD changes with nonspecific bilateral basal pulmonary changes as detailed above. Early subtle inter stitial lung disease cannot be excluded yet less likely, please correlate clinically. Follow-up CT sc an in 12 months can be considered. Scattered pulmonary nodules, suboptimally assessed by this CT scan. Follow-up routine CT chest can be considered to assess lung nodules. Other incidental findings as detailed above.
== END | disposition home or self-care (01) ==
LOC: RADCTMAIN 09:51
PROVIDERS: ATTEND Internal Medicine
DX: R91.8 Other nonspecific abnormal finding of lung field (principal)
CPT/HCPCS: 71250

== ENCOUNTER → 2022-04-25 | Outpatient (CLI) | payer BC ==
[2022-04-25 16:29] LABS: ALT 48 U/L (10-49); AST 42 U/L (14-35); African American GFR (CKD) 48.3 (60.0-200.0); Albumin/Globulin Ratio 0.91 (1.60-3.17); Alkaline Phosphatase 69 U/L (41-126); BUN/Creat Ratio 7.18 Ratio (12.00-20.00); Blood Urea Nitrogen 12.2 mg/dL (9.0-27.0); Calcium 7.9 mg/dL (8.7-10.3); Carbon Dioxide 24.3 mmol/L (20.0-27.5); Chloride 95 mmol/L (96-109); Chol/HDL Ratio 2.37 Ratio; Globulin 4.4 g/dL (1.6-3.3); Glucose 65 mg/dL (70-110); LDL Cholesterol,Calculated 51.5 mg/dL (0.0-131.0); Non-African American GFR(CKD) 41.7 (60.0-200.0); Potassium 3.6 mmol/L (3.5-5.5); Sodium 136 mmol/L (135-145); Total Protein 8.4 g/dL (6.2-8.2); VLDL Calculation 19.62 mg/dL (5.00-40.00)
== END | disposition home or self-care (01) ==
LOC: LABWHC1 08:22
PROVIDERS: ATTEND Family Medicine
DX: E11.65 Type 2 diabetes mellitus with hyperglycemia (principal)
CPT/HCPCS: 36415; 80053; 80061; 83036

== ENCOUNTER → 2023-10-27 | Outpatient (CLI) | payer MEDICARE ==
--- NOTE | 2023-10-27 17:34 | CTL ---
EXAMINATION TYPE: CT Low Dose Lung DATE OF EXAM: 10/27/2023 4:57 PM CLINICAL INDICATION:Male, 68 years old with history of Z12.2 SCREENING, Z87.891 HX NICOTINE DEPENDENC E, R68.3 CLUBB; smoker , history of tobacco use. COMPARISON: Multiple CT chest 11/17/2021, 04/08/2020 10/10/2019. TECHNIQUE: Multiple axial non-contrast scans were obtained from approximately the lung apices through the upper abdomen. Coronal and sagittal reformatted images were obtained. Low dose technique was uti lized. CT DLP: 88.6 mGycm, Automated exposure control for dose reduction was used. CT Contrast: Contrast used: None Oral contrast used: None FINDINGS: ======== Lack of intravenous contrast and low dose technique limits the evaluation of the vascular and soft ti ssue structures. LUNGS: No evidence of pulmonary fibrosis. No evidence of focal consolidation, pneumothorax or pleural effusion. Fsbr-cu-nytpbhuj emphysema changes throughout the lungs. Nodules: RUL: 6 mm series 5 image 14 RML: None. RLL: 5 mm image 32 7 mm image 32 6 mm image 38 CLEOPATRA: 6 mm image 32 LLL: 8 mm image 33 6 mm image 38. AIRWAY: Patent and unremarkable. HEART: Size within normal limits. Moderate atherosclerotic calcifications of the coronary arteries. MEDIASTINUM: No gross evidence of adenopathy. VASCULATURE: No aortic aneurysm. MUSCULOSKELETAL: No acute osseous abnormalities SOFT TISSUES/LYMPH NODES: Unremarkable. LOWER NECK: No significant findings. UPPER ABDOMEN: No significant findings. IMPRESSION: 1. New right upper lobe pulmonary nodule versus parenchymal scarring measuring 6 cm. 2. Scattered stable pulmonary nodules from at least 2019. 3. Lmle-sr-fwlmberl emphysema. CT LUNG RAD AND CT CHEST RECOMMENDATION: Lung-Rad 3 Probably Benign: 6 month follow-up LDCT. S Modifier (other clinically significant findings): Moderate coronary artery atherosclerosis. Recommend smoking cessation (if current smoker), or continuation of smoking cessation (if prior smoke r). Annual screening for lung cancer with low-dose computed tomography is recommended in adults ages 55 to 77 years who have a 30 pack-year smoking history and currently smoke or have quit within the pa st 15 years. Screening should be discontinued once a person has not smoked for 15 years or develops a health problem that substantially limits life expectancy or the ability or willingness to have curat uri lung surgery. Lung rads 2021 [email or web address]
== END | disposition home or self-care (01) ==
LOC: RADCTMAIN 16:36
PROVIDERS: ATTEND Internal Medicine Rheumatology
DX: Z12.2 Encounter for screening for malignant neoplasm of respiratory organs (principal); Z87.891 Personal history of nicotine dependence; R68.3 Clubbing of fingers; J43.9 Emphysema, unspecified; R91.8 Other nonspecific abnormal finding of lung field
CPT/HCPCS: 71271

== ENCOUNTER 2024-01-17 08:56 | Day surgery (SDC) | payer MEDICARE ==
[~2024-01-17 08:56] MED LIST changes: +HYDROmorphone 0.5 MG/0.5 ML SYRINGE IVP PRN; +LACTATED RINGERS 1,000 ML IV SCH; +LIDOCAINE 1% (10MG/ML) FOR IV START INTRADERMA PRN; -LIDOCAINE 1% 20 ML VIAL (10MG/ML) FOR IV START INTRADERMA PRN; +Pre Op ABX Message 1 EACH MISC MISCELLANE ONE
[2024-01-17 09:39] LABS: Glucose,Whole Blood 84 mg/dL (70-110)
[2024-01-17] MEDS: ACETAMINOPHEN TAB 500 MG TAB PO PRN (09:45)
[2024-01-17] MEDS: ONDANSETRON 4 MG/2 ML VIAL IVP ONE (09:46)
[2024-01-17] MEDS: HEPARIN SODIUM,PORCINE 5,000 UNIT/ML 1 ML VIAL SQ PRN (09:47)
[2024-01-17] MEDS: DEXAMETHASONE SOD PHOSPHATE 4 MG/ML 1 ML VIAL IVP STA (09:47)
[2024-01-17] MEDS: IV FLUID CONTINUATION 1,000 ML IV ONE (09:49)
[2024-01-17] MEDS ORDERED: fentaNYL (PF) 50 MCG/ML 2 ML AMP ONE (10:41)
[2024-01-17] MEDS ORDERED: NEOSTIGMINE 1 MG/ML 10 ML VIAL ONE (10:41)
[2024-01-17] MEDS ORDERED: PROPOFOL 10 MG/ML 20 ML VIAL IV ONE (10:41)
[2024-01-17] MEDS ORDERED: PHENYLEPHRINE 10 MG/ML VIAL ONE (10:41)
[2024-01-17] MEDS ORDERED: ceFAZolin 1 GM/50 ML BAG (PMX) ONE (10:41)
[2024-01-17] MEDS ORDERED: ROCURONIUM 10 MG/ML (5 ML VIAL) IV ONE (10:41)
[2024-01-17] MEDS ORDERED: GLYCOPYRROLATE 0.2 MG/ML 2 ML VIAL ONE (10:41)
[2024-01-17] MEDS ORDERED: SUCCINYLCHOLINE CHLORIDE 200 MG/10 ML VIAL IV ONE (10:41)
[2024-01-17] MEDS ORDERED: LIDOCAINE 1% INJ 10MG/ML (20 ML MDV) ONE (10:41)
[2024-01-17] MEDS ORDERED: MIDAZOLAM 2 MG/2 ML VIAL ONE (10:41)
[2024-01-17] MEDS: SODIUM CHLORIDE 0.9% 50 ML with ceFAZolin 2,000 MG IV ONE (11:04)
[2024-01-17] MEDS: BUPIVACAINE (PF) 0.25% 30 ML VIAL SQ ONE (11:15)
[2024-01-17] MEDS ORDERED: NALOXONE 0.4 MG/ML 1 ML VIAL IV PRN (11:36)
[2024-01-17] MEDS ORDERED: HYDROcodone/APAP 5-325MG 1 EACH TAB PO PRN (11:36)
[2024-01-17 11:39] VITALS: TEMP 97.5
--- NOTE | 2024-01-17 11:42 | P.OP ---
Date of Procedure: 01/17/24 Procedure(s) Performed: PREOPERATIVE DIAGNOSIS: Myositis, muscle weakness POSTOPERATIVE DIAGNOSIS: Same PROCEDURE: Left quadriceps muscle biopsy SURGEON: Delma EBL: Claudette Pennington ANESTHESIA: Gen. COMPLICATIONS: None OPERATIVE PROCEDURE: Patient was placed on the operative table in supine position. The patient was then placed under general anesthesia. Left thigh was prepped and draped sterilely. A longitudinal incision was made overlying the mid aspect of the left thigh. The subcutaneous tissues were divided using electrocautery. The fascia was then divided as well. A 2 x 1 cm piece of muscle was removed. This was sent to lab as per their instructions. The fascia was reapproximated using a running 3-0 Vicryl stitch. Subcutaneous tissues closed using 3-0 Vicryl sutures. Skin closed using a 4-0 Monocryl sutures. Skin glue was applied. DISPOSITION: Stable to recovery room
[2024-01-17 12:02] VITALS: RESP 16
[2024-01-17 12:03] LABS: Glucose,Whole Blood 85 mg/dL (70-110)
[2024-01-17 12:31] VITALS: BP 136/90; PULSE 81
== END 2024-01-17 12:49 ==
LOC: OR 08:56
PROVIDERS: ATTEND Surgery
DX: M60.9 Myositis, unspecified (principal); M62.81 Muscle weakness (generalized); I10 Essential (primary) hypertension; J44.9 Chronic obstructive pulmonary disease, unspecified; Z87.891 Personal history of nicotine dependence; K21.9 Gastro-esophageal reflux disease without esophagitis; E11.9 Type 2 diabetes mellitus without complications; E55.9 Vitamin D deficiency, unspecified; E05.90 Thyrotoxicosis, unspecified without thyrotoxic crisis or storm; M19.90 Unspecified osteoarthritis, unspecified site; E78.00 Pure hypercholesterolemia, unspecified; Z79.4 Long term (current) use of insulin; Z79.84 Long term (current) use of oral hypoglycemic drugs; Z79.899 Other long term (current) drug therapy; Z79.82 Long term (current) use of aspirin; Z79.51 Long term (current) use of inhaled steroids
CPT/HCPCS: 87635; 20205; J2250; J0330; J1644; J1100; J2710; J2405; J0690 ×2; J2001; J3010; J2704; J2371; J0665

== ENCOUNTER → 2024-06-13 | Outpatient (CLI) | payer MEDICARE ==
--- NOTE | 2024-06-13 15:12 | CT ---
EXAMINATION TYPE: CT chest wo con DATE OF EXAM: 06/13/2024 3:03 PM COMPARISON: CT scan 10/27/2023. CLINICAL INDICATION: Male, 68 years old with history of R91.8 OTHER NONSPECIFIC ABNORMAL FINDING OF L JAVIER F;, COPD, abnormality found on prior CT scan. TECHNIQUE: Multiple axial images were obtained through the chest. Sagittal and coronal reformats were created for review. MIP was performed on a separate workstation. Contrast used: mL of (None if empty) Oral contrast used: (None if empty) CT DLP: 641.5 mGycm, Automated exposure control for dose reduction was used. FINDINGS: LUNGS/ PLEURA: Stable pulmonary nodules throughout the lungs including the right upper lung 6 mm pulm onary nodule. * Stable other nodules examples include: * Right lower lobe 8 mm series 3 image 32, stable * Left lower lobe 8 mm series 3 image 36, stable Centrilobular paraseptal emphysema changes with scattered scarring. AIRWAY: Patent and unremarkable. HEART: Size within normal limits. Moderate to severe coronary artery calcifications. Trace pericardia l effusion. MEDIASTINUM: No gross evidence of adenopathy. VASCULATURE: No aortic aneurysm. MUSCULOSKELETAL: No acute osseous abnormalities SOFT TISSUES/LYMPH NODES: Unremarkable. LOWER NECK: No significant findings. UPPER ABDOMEN: Noduler 20 mm compatible with adrenal adenoma is stable. IMPRESSION: 1. Stable pulmonary nodules. Yearly low-dose lung cancer screening recommended. 2. Moderate emphysema. 3. Large severe coronary artery opacifications. 4. Trace pericardial effusion. 5. Stable left adrenal probable adenoma Follow up recommendations for incidental pulmonary nodules, if there are any, are per [employer] or [employer]. [email or web address] [facility], , 06/13/2024 3:09 PM
== END | disposition home or self-care (01) ==
LOC: RADCTMAIN 14:44
PROVIDERS: ATTEND Internal Medicine
DX: J44.9 Chronic obstructive pulmonary disease, unspecified (principal); R91.8 Other nonspecific abnormal finding of lung field; I31.39 Other pericardial effusion (noninflammatory)
CPT/HCPCS: 71250